=== PATIENT | female | born 1950 | race Hispanic/Latino ===

== ENCOUNTER 2017-10-14 06:27 | Emergency (ER) | payer BC, MEDICARE ==
[2017-10-14 06:36] VITALS: BMI 21.9
[2017-10-14 06:37] VITALS: O2SAT 96
[2017-10-14] MEDS ORDERED: Albuterol-Ipratrop 3 mg / 0.5 (3 ml) UD ONE (06:39)
[2017-10-14] MEDS: Albuterol-Ipratrop 3 mg / 0.5 (3 ml) UD IH SCH ×3 (07:16→08:03)
--- NOTE | 2017-10-14 07:23 | ED PDOC ---
Arrival/HPI - General Chief Complaint: Shortness Of Breath Time Seen by Provider: 10/14/17 07:07 Historian: Patient - History of Present Illness Narrative History of Present Illness (Text): 10/14/17 07:06 A 67 year old female smoker, whose past medical history includes asthma, bronchitis, and COPD, presents to the emergency department for right sided lower rib pain when coughing and she has associated sputum, which began yesterday. The patient reports since yesterday her coughing has increased and she feels short of breath. Her rib pain worsens with cough. The patient denies any fever, palpitations, abdominal pain, or any other complaints at this time. Time/Duration: 24 hours Symptom Onset: Sudden Symptom Course: Unchanged Activities at Onset: Light Context: Home Past Medical History - Provider Review Nursing Documentation Reviewed: Yes - Infectious Disease Hx of Infectious Diseases: None - Tetanus Immunization Tetanus Immunization: Unknown - Cardiac Hx Cardiac Disorders: Yes Hx Atrial Fibrillation: Yes Hx Hypertension: Yes - Pulmonary Hx Respiratory Disorders: Yes Hx Asthma: Yes Hx Bronchitis: Yes Hx Pneumonia: Yes (3 years ago) Hx Sleep Apnea: Yes (c pap) - Renal Hx Renal Disorder: Yes Hx Kidney Stones: Yes (right nephrectomy due to many large stones) - Endocrine/Metabolic Hx Endocrine Disorders: Yes Hx Diabetes Mellitus Type 2: Yes - Musculoskeletal/Rheumatological Hx Falls: No - Gastrointestinal Hx Gastrointestinal Disorders: Yes Hx Gall Bladder Disease: Yes Hx Gastroesophageal Reflux: Yes - Psychiatric Hx Psychophysiologic Disorder: Yes Hx Anxiety: Yes Hx Depression: Yes Hx Substance Use: No - Surgical History Hx Orthopedic Surgery: Yes (bilat bunionectomy) Other/Comment: right nephrectomy - Anesthesia Hx Anesthesia: Yes Hx Anesthesia Reactions: No Hx Malignant Hyperthermia: No - Suicidal Assessment Feels Threatened In Home Enviroment: No Family/Social History - Physician Review Nursing Documentation Reviewed: Yes Family/Social History: No Known Family HX Smoking Status: Former Smoker Hx Alcohol Use: No Hx Substance Use: No Hx Substance Use Treatment: No Allergies/Home Meds Allergies/Adverse Reactions: Allergies No Known Allergies Allergy (Verified 10/14/17 06:36) Home Medications: Home Meds Medication Instructions Recorded Confirmed Hyzaar 25 mg-100 mg 1 tab PO DAILY 03/03/14 10/14/17 Tricor 145 mg PO DAILY 03/03/14 10/14/17 Albuterol HFA [Ventolin HFA 90 1 puff NEB TID 05/04/14 10/14/17 mcg/actuation (8 g)] Alprazolam [Xanax] 0.25 mg PO BID PRN 05/04/14 10/14/17 Fluvastatin Sodium [Lescol] 80 mg PO DAILY 05/04/14 10/14/17 Fluticasone/Vilanterol [Breo 1 inh INH DAILY 06/26/16 10/14/17 Ellipta 100-25 Mcg INH] Liraglutide [Victoza 2-Jose] 0.8 mg SC DAILY 06/26/16 10/14/17 Tiotropium Zap Inhaler 1 inh INH DAILY 06/26/16 10/14/17 [Spiriva Inhalation Handihaler Device] predniSONE [predniSONE Tab] 40 mg PO DAILY 11/14/16 10/14/17 Apixaban [Eliquis] 5 mg PO BID 11/28/16 10/14/17 Carvedilol [Coreg] 6.25 mg PO DAILY 11/28/16 10/14/17 Escitalopram [Lexapro] 20 mg PO DAILY 11/28/16 10/14/17 Esomeprazole Magnesium [Nexium] 1 cap PO DAILY 11/28/16 10/14/17 Review of Systems - Review of Systems Constitutional: absent: Fevers Eyes: absent: Vision Changes Respiratory: SOB, Cough, Sputum Cardiovascular: MORA, Other (left sided chest pain when coughing only). absent: Palpitations Gastrointestinal: absent: Abdominal Pain Musculoskeletal: Other (right side lower rib pain ) Skin: absent: Rash Neurological: absent: Headache, Dizziness Hemo/Lymphatic: absent: Easy Bleeding Physical Exam - Physical Exam Narrative Physical Exam (Text): 10/14/17 07:23 Head: Atraumatic. Normocephalic. Eyes: PERRL. EOMI. Conjunctivae are not pale. ENT: Mucous membranes are moist and intact. Oropharynx is clear and symmetric. Neck: Supple. Full ROM. No JVD. No lymphadenopathy. Cardiovascular: Regular rate. Regular rhythm. Systolic murmur. Distal pulses are 2+ and symmetric. Pulmonary/Chest: Diffuse expiratory wheeze bilaterally. No rales or rhonchi. No accessory muscle usage. Palpable left anterior chest wall pain. Abdominal: Soft and non-distended. There is no tenderness. No rebound, guarding, or rigidity. No organomegaly. Good bowel sounds. Back: No CVA tenderness. Extremities: No edema. No cyanosis. No clubbing. Full range of motion in all extremities. No calf tenderness. Skin: Skin is warm and dry. No petechiae. No purpura. Neurological: Alert, awake, and oriented. Motor and sensory exam intact. Psychiatric: Good eye contact. Normal interaction, affect, and behavior. Vital Signs Reviewed: Yes Vital Signs Temp Pulse Resp BP Pulse Ox 10/14/17 08:28 98.2 F 81 19 133/77 96 10/14/17 06:50 96 10/14/17 06:36 97.9 F 88 20 150/82 96 Temperature: Afebrile Blood Pressure: Normal Pulse: Regular Respiratory Rate: Normal Appearance: Positive for: Well-Appearing, Non-Toxic, Comfortable Pain Distress: None Mental Status: Positive for: Alert and Oriented X 3 Medical Decision Making ED Course and Treatment: 10/14/17 07:15 Impression: A 67 year old female with shortness of breath and productive cough. Differential Diagnosis included but are not limited to: Asthma exacerbation vs. Pneumonia vs. CAD Plan: -- VBG -- EKG -- Chest X-ray -- Duoneb, Solu-medrol -- Labs -- Reassess and disposition Progress Notes: Patient is a 67 yo female, smoker, with diffuse wheezing noted. Duonebs and iv steroids ordered, on re-assessment, wheezing improved but persistent. 10/14/17 08:34 Chest X-ray Arcade Game Technician : Lawrence Thomas MD Report Date : 10/14/2017 08:19:02 HISTORY:cough, asthma COMPARISON:06/26/2016 FINDINGS: LUNGS:No active pulmonary disease. PLEURA:No significant pleural effusion identified, no pneumothorax apparent. CARDIOVASCULAR:Normal. OSSEOUS STRUCTURES:No significant abnormalities. VISUALIZED UPPER ABDOMEN:Normal. OTHER FINDINGS:None. IMPRESSION: No active disease. Chest pain is palpable, although patient noted to have elevated BNP. No jvd or leg edema noted. I did review patient's history of smoking and advised her of risks of this. I reviewed recent CT chest with patient as well. Due to elevated BNP, persistent wheezing, I have advised, in laymens terms, admission to the hospital for further management. She states she has things to take care of home and wishes to sign out against medical advice. She is oxygenating well, not in respiratory distress on re-evaluation. Limitations of imaging studies, labs and EKG reviewed with patient. I reviewed case with her PMD Dr. Phelps, aware of patient signing out AMA and will follow-up. 10/14/17 08:37 Leaving Against Medical Advice (AMA): The patient is choosing to leave against medical advice. I have personally explained to the patient that choosing to do so may result in permanent bodily harm or . I have discussed at great length that without further evaluation and monitoring there may be unforeseen circumstances and/or deterioration causing permanent bodily harm or as a result of their choice. The patient is alert, oriented, and shows the mental capacity to make clear decisions regarding the patients health care at this time. The patient continues to wish to leave against medical advice. In light of the patients decision to leave against medical advice, follow-up has been arranged and the patient is aware of the importance to following up as instructed. The patient has been advised that they should return to the emergency room immediately if they change their mind at any time, or if their condition begins to change or worsen in any way.. 10/14/17 09:12 - Lab Interpretations Lab Results: 10/14/17 07:20 10/14/17 07:20 Lab Results 10/14/17 07:20: Sodium 140, Chloride 111 H, Potassium 4.0, Carbon Dioxide 24, Anion Gap 9 L, BUN 18, Creatinine 1.3 H, Est GFR ( Amer) 50, Est GFR (Non -Af Amer) 41, Random Glucose 101, Calcium 9.1, Total Bilirubin 0.5, AST 25, ALT 24, Alkaline Phosphatase 45, Lactate Dehydrogenase 493, Total Creatine Kinase 83 , Troponin I < 0.01, NT-Pro-B Natriuret Pep 1300 H, Total Protein 6.5, Albumin 3.3, Globulin 3.2, Albumin/Globulin Ratio 1.0 L 10/14/17 07:20: pO2 64 H, VBG pH 7.33, VBG pCO2 48.0, VBG HCO3 25.3, VBG Total CO2 26.8, VBG O2 Sat (Calc) 94.4 H, VBG Base Excess -1.1 L, VBG Potassium 4.0, Sodium 140.0, Chloride 112.0 H, Glucose 100, Lactate 0.9, FiO2 21.0, Venous Blood Potassium 4.0 10/14/17 07:20: PT 18.2 H, INR 1.64 H, APTT 38.1 H 10/14/17 07:20: WBC 10.6, RBC 3.73, Hgb 11.4 L, Hct 35.9 L, MCV 96.2, MCH 30.6, MCHC 31.8, RDW 15.9 H, Plt Count 296, MPV 11.6 H, Gran % 63.2, Lymph % (Auto) 21.6 L, [place] % (Auto) 9.6 H, Eos % (Auto) 5.2 H, Baso % (Auto) 0.4, Gran # 6.68 H, Lymph # 2.3, [place] # 1.0 H, Eos # 0.6, Baso # 0.04 - RAD Interpretation Radiology Orders: 10/14/17 07:10 CHEST PORTABLE [RAD] Stat - EKG Interpretation EKG Interpretation (Text): 10/14/17 09:12 EKG at 0735 normal sinus rhythm rate of 84 with low voltage qrs Interpreted by ED Physician: Yes Type: 12 lead EKG - Medication Orders Current Medication Orders: Discontinued Medications Acetaminophen (Tylenol 325mg Tab) 650 mg PO ONCE STA Stop: 10/14/17 08:11 Last Admin: 10/14/17 08:19 Dose: 650 mg MAR Pain/Vitals Document 10/14/17 08:19 [place] (Rec: 10/14/17 08:24 [facility] [id number] Pain Reassessment Is This A Pain ReAssessment? Yes Sleep Is patient sleeping during reassessment? No Presence of Pain Presence of Pain Yes Pain Scale Used Pain Scale Used Numeric Location Pain Location Body Cultured [employer] Maker Description Intermittent Intensity 7 Scale Used Numeric Albuterol/Ipratropium (Duoneb 3 Mg/0.5 Mg (3 Ml) Ud) 3 ml IH Q15M ALBERT Stop: 10/14/17 07:46 Last Admin: 10/14/17 08:03 Dose: 3 ml Methylprednisolone (Solu-Medrol) 125 mg IVP STAT STA Stop: 10/14/17 07:13 Last Admin: 10/14/17 08:03 Dose: 125 mg IVP Administration Document 10/14/17 08:03 LA (Rec: 10/14/17 08:03 [facility] [id number][place] Charges for Administration # of IVP Administrations 1 - Scribe Statement The provider has reviewed the documentation as recorded by the Scribe Emily Munson Provider Scribe Attestation: All medical record entries made by the Scribe were at my direction and personally dictated by me. I have reviewed the chart and agree that the record accurately reflects my personal performance of the history, physical exam, medical decision making, and the department course for this patient. I have also personally directed, reviewed, and agree with the discharge instructions and disposition. Disposition/Present on Arrival - Present on Arrival Any Indicators Present on Arrival: No History of DVT/PE: No History of Uncontrolled Diabetes: No Urinary Catheter: No History of Decub. Ulcer: No History Surgical Site Infection Following: None - Disposition Have Diagnosis and Disposition been Completed?: Yes Diagnosis: Asthma exacerbation, Elevated brain natriuretic peptide (BNP) level, Dyspnea Disposition: AGAINST MEDICAL ADVICE Disposition Time: 08:45 Patient Plan: Discharge Patient Problems: Current Active Problems Problem Status Onset Asthma exacerbation Acute Dyspnea Acute Elevated brain natriuretic peptide (BNP) level Acute Condition: GOOD Discharge Instructions (ExitCare): Asthma (ED), How to Stop Smoking (ED), Acute Bronchitis (ED) Additional Instructions: You have stated that you do not with to be admitted to the hospital. Please return to the ER immediately for any worsening of symptoms. Please refrain from smoking. Please follow-up with your primary care doctor as soon as possible. Take antibiotics and prednisone as directed. Continue your inhaler as directed. Follow-up with a diagnostic radiologist as discussed. Prescriptions: Amoxicillin/Clavulanate [Augmentin 875 MG-125 MG] 1 tab PO BID #20 tab predniSONE [Prednisone] 60 mg PO DAILY #15 tab Referrals: Stepan Silva MD [Primary Care Provider] - Follow up with primary Forms: [facility] [employer] (Chinese), WORK NOTE
[2017-10-14 07:44] LABS: VENOUS BLOOD GAS BASE EXCESS -1.1 mmol/L (0.0-2.0); VENOUS BLOOD PH 7.33 (7.32-7.43)
[2017-10-14 07:47] LABS: BASO # 0.04 K/mm3 (0.0-2.0); BASO % 0.4 % (0.0-3.0); EOS # 0.6 (0.0-0.7); EOS % 5.2 % (1.5-5.0); GRAN # 6.68 (1.4-6.5); GRAN % 63.2 % (50.0-68.0); HEMATOCRIT 35.9 % (36.0-48.0); LYMPH # 2.3 (1.2-3.4); LYMPH % 21.6 % (22.0-35.0); MEAN CELL VOLUME 96.2 fl (80.0-105.0); MEAN CORPUSCULAR HEMOGLOBIN 30.6 pg (25.0-35.0); MEAN CORPUSCULAR HGB CONC 31.8 g/dl (31.0-37.0); MEAN PLATELET VOLUME 11.6 fl (7.0-11.0); MONO % 9.6 % (1.0-6.0); RED CELL DISTRIBUTION WIDTH 15.9 % (11.5-14.5); WHITE BLOOD COUNT 10.6 10^3/ul (4.5-11.0)
[2017-10-14 07:55] LABS: ALKALINE PHOSPHATASE 45 U/L (38-126); ALT/SGPT 24 U/L (7-56); AST/SGOT 25 U/L (14-36); BILIRUBIN,TOTAL 0.5 mg/dL (0.2-1.3); BLOOD UREA NITROGEN 18 mg/dL (7-21); CALCIUM 9.1 mg/dL (8.4-10.5); CARBON DIOXIDE 24 mmol/L (21-33); CHLORIDE 111 mmol/L (98-107); GFR AFRICAN-AMERICAN 50; GLUCOSE,RANDOM 101 mg/dL (70-110); SODIUM 140 mmol/L (132-148); TOTAL PROTEIN 6.5 g/dL (5.8-8.3)
[2017-10-14 08:03] LABS: INR 1.64 (0.93-1.08); PARTIAL THROMBOPLASTIN TIME 38.1 Seconds (25.1-36.5)
[2017-10-14 08:07] LABS: TROPONIN I < 0.01 ng/mL
--- NOTE | 2017-10-14 08:20 | RAD ---
HISTORY: cough, asthma COMPARISON: 06/26/2016 FINDINGS: LUNGS: No active pulmonary disease. PLEURA: No significant pleural effusion identified, no pneumothorax apparent. CARDIOVASCULAR: Normal. OSSEOUS STRUCTURES: No significant abnormalities. VISUALIZED UPPER ABDOMEN: Normal. OTHER FINDINGS: None. IMPRESSION: No active disease.
[2017-10-14 08:30] VITALS: BP 133/77; PULSE 81; RESP 19; TEMP 98.2
--- NOTE | 2017-10-14 12:06 | CARD ---
APPROVED REPORT EKG Measurement Heart [id number] <Conclusion> Normal sinus rhythm LAD NSSTW changes No change
== END 2017-10-14 09:05 | disposition left against medical advice (07) ==
LOC: ED 06:27
DX: J45.901 Unspecified asthma with (acute) exacerbation (principal); R79.89 Other specified abnormal findings of blood chemistry; I10 Essential (primary) hypertension; I48.91 Unspecified atrial fibrillation; E11.9 Type 2 diabetes mellitus without complications; Z87.891 Personal history of nicotine dependence
CPT/HCPCS: 71010; 80053; 82550; 82803; 83615; 83880; 84484; 85025; 85610; 85730; 87040; 93005; 96374; 99285; J2930

== ENCOUNTER 2017-10-15 23:39 | Observation (INO) | payer BC ==
[2017-10-15 23:40] VITALS: BMI 21.9
--- NOTE | 2017-10-15 23:59 | ED PDOC ---
Arrival/HPI - General Chief Complaint: Abdominal Pain Time Seen by Provider: 10/15/17 23:45 Historian: Patient - History of Present Illness Narrative History of Present Illness (Text): 10/15/17 23:56 Marissa Marmolejo is a 67 year old female, whose past medical history includes right nephrectomy s/p multiple episodes of nephrolithiasis, cholecystectomy, atrial fibrillation, asthma, hypertension, and diabetes, who presents to the Emergency department complaining of LUQ abdominal pain for the past few days. Patient also reports some associated nausea but denies any fever, chills, chest pain, shortness of breath, vomiting, diarrhea, urinary symptoms, back pain, neck pain, headache, dizziness, or any other complaints. PMD: Dr. Silva Time/Duration: Other (few days) Symptom Onset: Gradual Symptom Course: Unchanged Activities at Onset: Light Context: Home Past Medical History - Provider Review Nursing Documentation Reviewed: Yes - Infectious Disease Hx of Infectious Diseases: None - Tetanus Immunization Tetanus Immunization: Unknown - Cardiac Hx Cardiac Disorders: Yes Hx Atrial Fibrillation: Yes Hx Hypertension: Yes - Pulmonary Hx Respiratory Disorders: Yes Hx Asthma: Yes Hx Bronchitis: Yes Hx Pneumonia: Yes (3 years ago) Hx Sleep Apnea: Yes (c pap) - Renal Hx Renal Disorder: Yes Hx Kidney Stones: Yes (right nephrectomy due to many large stones) - Endocrine/Metabolic Hx Endocrine Disorders: Yes Hx Diabetes Mellitus Type 2: Yes - Musculoskeletal/Rheumatological Hx Falls: No - Gastrointestinal Hx Gastrointestinal Disorders: Yes Hx Gall Bladder Disease: Yes Hx Gastroesophageal Reflux: Yes - Psychiatric Hx Psychophysiologic Disorder: Yes Hx Anxiety: Yes Hx Depression: Yes Hx Substance Use: No - Surgical History Hx Orthopedic Surgery: Yes (bilat bunionectomy) Other/Comment: right nephrectomy - Anesthesia Hx Anesthesia: Yes Hx Anesthesia Reactions: No Hx Malignant Hyperthermia: No - Suicidal Assessment Feels Threatened In Home Enviroment: No Family/Social History - Physician Review Nursing Documentation Reviewed: Yes Family/Social History: Unknown Family HX Smoking Status: y Hx Alcohol Use: No Hx Substance Use: No Hx Substance Use Treatment: No Allergies/Home Meds Allergies/Adverse Reactions: Allergies No Known Allergies Allergy (Verified 10/14/17 06:36) Home Medications: Home Meds Medication Instructions Recorded Confirmed Hyzaar 25 mg-100 mg 1 tab PO DAILY 03/03/14 10/14/17 Tricor 145 mg PO DAILY 03/03/14 10/14/17 Albuterol HFA [Ventolin HFA 90 1 puff NEB TID 05/04/14 10/14/17 mcg/actuation (8 g)] Alprazolam [Xanax] 0.25 mg PO BID PRN 05/04/14 10/14/17 Fluvastatin Sodium [Lescol] 80 mg PO DAILY 05/04/14 10/14/17 Fluticasone/Vilanterol [Breo 1 inh INH DAILY 06/26/16 10/14/17 Ellipta 100-25 Mcg INH] Liraglutide [Victoza 2-Jose] 0.8 mg SC DAILY 06/26/16 10/14/17 Tiotropium Austin Inhaler 1 inh INH DAILY 06/26/16 10/14/17 [Spiriva Inhalation Handihaler Device] predniSONE [predniSONE Tab] 40 mg PO DAILY 11/14/16 10/14/17 Apixaban [Eliquis] 5 mg PO BID 11/28/16 10/14/17 Carvedilol [Coreg] 6.25 mg PO DAILY 11/28/16 10/14/17 Escitalopram [Lexapro] 20 mg PO DAILY 11/28/16 10/14/17 Esomeprazole Magnesium [Nexium] 1 cap PO DAILY 11/28/16 10/14/17 Review of Systems - Physician Review All systems were reviewed & negative as marked: Yes - Review of Systems Constitutional: Normal. absent: Fevers Eyes: Normal ENT: Normal Respiratory: Normal. absent: SOB, Cough Cardiovascular: Normal. absent: Chest Pain Gastrointestinal: Abdominal Pain, Nausea. absent: Diarrhea, Vomiting Genitourinary Female: Normal. absent: Dysuria, Frequency, Hematuria, Urine Output Changes Musculoskeletal: Normal. absent: Back Pain, Neck Pain Skin: Normal. absent: Rash Neurological: Normal. absent: Headache, Dizziness Endocrine: Normal Hemo/Lymphatic: Normal Psychiatric: Normal Physical Exam Vital Signs Reviewed: Yes Vital Signs Temp Pulse Resp BP Pulse Ox 10/16/17 04:12 98.0 F 82 17 122/74 96 10/16/17 04:01 99.2 F 100 H 20 132/83 10/16/17 03:28 82 17 122/74 96 10/16/17 00:44 98.3 F 93 H 17 156/83 H 96 10/15/17 23:40 98.3 F Temperature: Afebrile Blood Pressure: Normal Pulse: Regular Respiratory Rate: Normal Appearance: Positive for: Well-Appearing, Non-Toxic, Comfortable Pain Distress: None Mental Status: Positive for: Alert and Oriented X 3 - Systems Exam Head: Present: Atraumatic, Normocephalic Pupils: Present: PERRL Extroacular Muscles: Present: EOMI Conjunctiva: Present: Normal Mouth: Present: Moist Mucous Membranes Neck: Present: Normal Range of Motion Respiratory/Chest: Present: Clear to Auscultation, Good Air Exchange. No: Respiratory Distress, Accessory Muscle Use Cardiovascular: Present: Regular Rate and Rhythm, Normal S1, S2. No: Murmurs Abdomen: Present: Normal Bowel Sounds. No: Tenderness, Distention, Peritoneal Signs Back: Present: Normal Inspection Upper Extremity: Present: Normal Inspection. No: Cyanosis, Edema Lower Extremity: Present: Normal Inspection. No: Edema Neurological: Present: GCS=15, CN II-XII Intact, Speech Normal Skin: Present: Warm, Dry, Normal Color. No: Rashes Psychiatric: Present: Alert, Oriented x 3, Normal Insight, Normal Concentration Medical Decision Making ED Course and Treatment: 10/15/17 23:56 Impression: 67 year old female complaining of LUQ pain with nausea for past few days, Plan: -- EKG -- Labs, cardiac enzymes, lipase, amylase -- Urinalysis, urine cultures -- IV fluids -- Zofran -- Dilaudid -- Reassess and disposition Prior Visits: Notes and results from previous visits were reviewed. On 10/14/2017, pt was seen in the Emergency department for right-sided lower rib pain when coughing with associated sputum. Pt was d/c home. Progress Notes: Reviewed EKG, NSR at 99 bpm. Occasional PAC. Non-specific ST/T wave changes. 10/16/17 02:05 CT Abdomen and Pelvis shows: Lower thorax: There is a somewhat ill-defined ovoid lesion in the left lower lobe measuring 2.7 x 2.6 CM on series 2, image 1. This may represent infiltrate, rounded atelectasis or perhaps ill-defined mass. Please correlate clinically and follow up can be obtained as clinically indicated. Vague groundglass opacity in the lingula is nonspecific and may represent atelectasis , early infiltrate or mosaic attenuation. Mosaic attenuation itself is nonspecific and can be seen in vascular and small airways disease. ABDOMEN: Liver: There are no focal liver lesions present. Gallbladder and bile ducts: There has been a cholecystectomy. No ductal dilation. Pancreas: Pancreas is somewhat atrophic. No ductal dilation. Spleen: The spleen is normal. Adrenals: The adrenal glands are normal. Kidneys and ureters: Left kidney demonstrates a large exophytic lower pole cyst measuring 8.7 CM on series 2, image 97. Left kidney demonstrates a few smaller cysts and subcentimeter hypodensities which are too small to adequately characterize. No left hydronephrosis. The right kidney is surgically absent. Stomach and bowel: Stomach is predominantly decompressed and grossly unremarkable. Moderate diverticulosis is present in the sigmoid and descending colon. There is no evidence of diverticulitis. There is no evidence of intestinal obstruction. Appendix: A normal appendix is identified. PELVIS: Bladder: Bladder is decompressed. No stones. Reproductive: Uterus demonstrates a few chunky calcifications compatible with calcified fibroids. ABDOMEN and PELVIS: Intraperitoneal space: There is no evidence of free intraperitoneal fluid. There is no free intraperitoneal air. Bones/joints: There are moderate degenerative changes present. There is mild diffuse osteopenia. No acute fracture. No dislocation. Soft tissues: Hernia mesh is present along the right flank abdominal wall. Vasculature: The aorta demonstrates moderate atherosclerotic calcification. No abdominal aortic aneurysm. Lymph nodes: There is no evidence of lymphadenopathy. IMPRESSION: 1. There is a somewhat ill-defined ovoid lesion in the left lower lobe measuring 2.7 x 2.6 CM on series 2, image 1. This may represent infiltrate, rounded atelectasis or perhaps ill-defined mass. Please correlate clinically and follow up can be obtained as clinically indicated. 2. Vague groundglass opacity in the lingula is nonspecific and may represent atelectasis, early infiltrate or mosaic attenuation. Mosaic attenuation itself is nonspecific and can be seen in vascular and small airways disease. 3. No definite etiology for left flank pain is found. 4. Additional incidental and/or chronic findings as described. 10/16/17 02:[address] Phelps, covering for Dr. Silva, who is aware and agrees with plan. Pt will go to [facility] observation for abdominal pain and leukocytosis. - Lab Interpretations Microbiology Results: Microbiology Results 10/16/17 00:30 Urine,Clean Catch Urine Culture - Final No Growth (<1,000 CFU/ML) Lab Results: 10/16/17 00:13 10/16/17 00:13 Lab Results 10/16/17 00:30: Urine Color Yellow, Urine Appearance Clear, Urine pH 6.0, Ur Specific Nicasio 1.025, Urine Protein 100 H, Urine Glucose (UA) Negative, Urine Ketones Negative, Urine Blood Small H, Urine Nitrate Negative, Urine Bilirubin Negative, Urine Urobilinogen 0.2, Ur Leukocyte Esterase Negative, Urine RBC 1 - 3, Urine WBC 0 - 2, Ur Epithelial Cells 1 - 3, Urine Bacteria Few 10/16/17 00:13: Sodium 142, Potassium 4.5, Chloride 109 H, Carbon Dioxide 26, Anion Gap 11, BUN 22 H, Creatinine 1.4 H, Est GFR ( Amer) 46, Est GFR ( Non-Af Amer) 38, Random Glucose 99, Calcium 9.5, Total Bilirubin 0.8, AST 38 H D , ALT 25, Alkaline Phosphatase 38, Lactate Dehydrogenase 781 H, Total Creatine Kinase 90, Troponin I < 0.01, Total Protein 7.2, Albumin 3.6, Globulin 3.6, Albumin/Globulin Ratio 1.0 L, Amylase 61, Lipase 84 10/16/17 00:13: PT 12.9 H, INR 1.18 H, APTT 32.3 10/16/17 00:13: WBC 17.4 H D, RBC 3.97, Hgb 12.4, Hct 37.9, MCV 95.5, MCH 31.2, MCHC 32.7, RDW 15.4 H, Plt Count 348, MPV 11.5 H, Gran % 79.6 H, Lymph % (Auto) 14.9 L, Cuming % (Auto) 5.0, Eos % (Auto) 0.3 L, Baso % (Auto) 0.2, Gran # 13.88 H , Lymph # 2.6, Cuming # 0.9 H, Eos # 0.1, Baso # 0.03 I have reviewed the lab results: Yes - RAD Interpretation Radiology Orders: 10/16/17 00:43 ABD & PELVIS W/O PO OR IV CONT [CT] Stat 10/16/17 02:16 CHEST PORTABLE [RAD] Stat Sack Sorter: Radiologist - EKG Interpretation Interpreted by ED Physician: Yes Type: 12 lead EKG - Medication Orders Current Medication Orders: Discontinued Medications Acetylcysteine (Acetylcysteine 20%) 4 ml IH [id number] [facility] Last Admin: 10/17/17 08:33 Dose: 4 ml Alprazolam (Xanax) 0.25 mg PO BID PRN; Protocol PRN Reason: Anxiety Stop: 10/23/17 03:56 Apixaban (Eliquis) 5 mg PO BID [facility] PRN Reason: Protocol Last Admin: 10/17/17 10:27 Dose: 5 mg Atorvastatin Calcium (Lipitor) 20 mg PO DIN [facility] Last Admin: 10/16/17 17:40 Dose: 20 mg Budesonide (Pulmicort Respules) 0.5 mg IH [id number] [facility] Last Admin: 10/17/17 08:33 Dose: 0.5 mg Carvedilol (Coreg) 6.25 mg PO DAILY [facility] Last Admin: 10/17/17 10:27 Dose: 6.25 mg MAR Pulse and Blood Pressure Document 10/17/17 10:27 [facility] (Rec: 10/17/17 10:27 [id number] Pulse Pulse Rate (60-90) 68 Blood Pressure Blood Pressure (100/60-150/90) 120/69 Escitalopram Oxalate (Lexapro) 20 mg PO DAILY [facility] Last Admin: 10/17/17 10:26 Dose: 20 mg Fenofibrate (Tricor) 145 mg PO DAILY [facility] Last Admin: 10/17/17 10:27 Dose: 145 mg Hydrochlorothiazide (Hydrodiuril) 25 mg PO DAILY [facility] Last Admin: 10/17/17 10:26 Dose: 25 mg Hydromorphone HCl (Dilaudid) 2 mg IVP STAT STA Stop: 10/16/17 00:01 Last Admin: 10/16/17 00:24 Dose: 2 mg MAR Pain Assessment Document 10/16/17 00:24 IT (Rec: 10/16/17 00:24 IT [id number]) Pain Reassessment Is this a pain reassessment? No Sleep Is patient sleeping during reassessment? No Presence of Pain Presence of Pain Yes Pain Scale Used Pain Scale Used Numeric Location Left, Right or Bilateral Left Pain Location Body Site Abdomen IVP Administration Document 10/16/17 00:24 IT (Rec: 10/16/17 00:24 IT [id number]) Charges for Administration # of IVP Administrations 1 Re-Assess: ELADIO Pain Assessment Document 10/16/17 01:24 RR (Rec: 10/17/17 01:04 RR [id number]) Pain Reassessment Is this a pain reassessment? Yes Sleep Is patient sleeping during reassessment? Yes Pain Scale Used Pain Scale Used FLACC Sodium Chloride (Sodium Chloride 0.9%) 1,000 mls @ 80 mls/hr IV .[id number] [facility] Last Admin: 10/17/17 05:29 Dose: 80 mls/hr eMAR Start Stop Document 10/17/17 05:29 RR (Rec: 10/17/17 05:29 RR [id number]) Intravenous Solution Start Date 10/17/17 Start Time 05:29 Metronidazole (Flagyl) 500 mg in 100 mls @ 100 mls/hr IVPB STAT STA PRN Reason: Protocol Stop: 10/16/17 03:23 Last Admin: 10/16/17 02:38 Dose: 100 mls/hr eMAR Start Stop Document 10/16/17 02:38 IT (Rec: 10/16/17 02:38 IT [id number]) Intravenous Solution Start Date 10/16/17 Start Time 02:38 End Date 10/16/17 End time 03:38 Total Infusion Time 60 Ceftriaxone Sodium 1 gm/ (Sodium Chloride) 100 mls @ 100 mls/hr IVPB STAT STA Stop: 10/16/17 03:29 Last Admin: 10/16/17 04:21 Dose: 100 mls/hr eMAR Start Stop Document 10/16/17 04:21 DC (Rec: 10/16/17 05:04 DC [id number]) Intravenous Solution Start Date 10/16/17 Start Time 04:21 End Date 10/16/17 End time 05:21 Total Infusion Time 60 Metronidazole (Flagyl) 500 mg in 100 mls @ 100 mls/hr IVPB Q8H [facility] PRN Reason: Protocol Last Admin: 10/17/17 05:34 Dose: Doxycycline Hyclate 100 mg/ (Sodium Chloride) 100 mls @ 100 mls/hr IVPB Q12 [facility] PRN Reason: Protocol Last Admin: 10/16/17 21:26 Dose: 100 mls/hr eMAR Start Stop Document 10/16/17 21:26 RR (Rec: 10/16/17 21:27 RR [id number]) Intravenous Solution Start Date 10/16/17 Start Time 22:50 End Date 10/16/17 End time 23:50 Total Infusion Time 60 Ceftriaxone Sodium (Rocephin 1 Gram Ivpb (D5w)) 1 gm in 100 mls @ 100 mls/hr IVPB DAILY [facility] PRN Reason: Protocol Last Admin: 10/17/17 10:29 Dose: 100 mls/hr eMAR Start Stop Document 10/17/17 10:29 [facility] (Rec: 10/17/17 10:29 [facility] [id number]) Intravenous Solution Start Date 10/17/17 Start Time 10:29 End Date 10/17/17 End time 11:30 Total Infusion Time 61 Metronidazole (Flagyl) 500 mg in 100 mls @ 100 mls/hr IVPB Q8H [facility] PRN Reason: Protocol Last Admin: 10/17/17 05:28 Dose: 100 mls/hr eMAR Start Stop Document 10/17/17 05:28 RR (Rec: 10/17/17 05:28 RR [id number]) Intravenous Solution Start Date 10/17/17 Start Time 05:28 End Date 10/17/17 End time 06:28 Total Infusion Time 60 Ceftriaxone Sodium 1 gm/ (Sodium Chloride) 100 mls @ 100 mls/hr IVPB DAILY [facility] PRN Reason: Protocol Insulin Human Regular (Humulin R Low) 0 units SC ACHS [facility] PRN Reason: Protocol Last Admin: 10/17/17 07:52 Dose: Not Given Non-Admin Reason: Blood Sugar Parameter MAR Blood Glucose Document 10/17/17 07:52 [facility] (Rec: 10/17/17 07:52 [id number]) Blood Glucose Finger Stick Blood Glucose (70-120) 133 Lactobacillus Acidophilus (Bacid Acidophilus) 1 cap PO BID [facility] Levalbuterol HCl (Xopenex) 0.63 mg IH [id number] PRN PRN Reason: Shortness of Breath Last Admin: 10/16/17 08:40 Dose: 0.63 mg Levalbuterol HCl (Xopenex) 0.63 mg IH [id number] [facility] Last Admin: 10/17/17 11:09 Dose: 0.63 mg Losartan Potassium (Cozaar) 100 mg PO DAILY [facility] Last Admin: 10/17/17 10:26 Dose: 100 mg Methylprednisolone (Solu-Medrol) 40 mg IVP Q8 [facility] Last Admin: 10/17/17 05:29 Dose: 40 mg IVP Administration Document 10/17/17 05:29 RR (Rec: 10/17/17 05:29 RR [id number]) Charges for Administration # of IVP Administrations 1 Methylprednisolone (Solu-Medrol) 40 mg IVP Q12 [facility] Last Admin: 10/17/17 10:29 Dose: 40 mg IVP Administration Document 10/17/17 10:29 [facility] (Rec: 10/17/17 10:29 [facility] [id number]) Charges for Administration # of IVP Administrations 1 Metronidazole (Flagyl) 250 mg PO Q8H [facility] PRN Reason: Protocol Stop: 10/27/17 11:46 Morphine Sulfate (Morphine) 2 mg IVP Q4H PRN PRN Reason: Pain, severe (8-10) Last Admin: 10/16/17 22:23 Dose: 2 mg MAR Pain Assessment Document 10/16/17 22:23 RR (Rec: 10/16/17 22:24 RR [id number]) Pain Reassessment Is this a pain reassessment? No Sleep Is patient sleeping during reassessment? No Presence of Pain Presence of Pain Yes Pain Scale Used Pain Scale Used Numeric Location Left, Right or Bilateral Left Upper or Lower Lower Pain Location Body Site Abdomen Description Description Intermittent Intensity of Pain at present 6 Pain Behavior Moaning Guarding Facial Grimacing Alleviating Factors/Management Medication Techniques Alleviating Factors Medication IVP Administration Document 10/16/17 22:23 RR (Rec: 10/16/17 22:24 RR [id number]) Charges for Administration # of IVP Administrations 1 Re-Assess: MAR Pain Assessment Document 10/16/17 23:23 RR (Rec: 10/17/17 01:04 RR [id number]) Pain Reassessment Is this a pain reassessment? Yes Sleep Is patient sleeping during reassessment? Yes Pain Scale Used Pain Scale Used FLACC Ondansetron HCl (Zofran Inj) 4 mg IVP STAT STA Stop: 10/16/17 00:01 Last Admin: 10/16/17 00:24 Dose: 4 mg IVP Administration Document 10/16/17 00:24 IT (Rec: 10/16/17 00:24 IT [id number]) Charges for Administration # of IVP Administrations 1 Pantoprazole Sodium (Protonix Ec Tab) 40 mg PO 0600 [facility] Last Admin: 10/17/17 05:28 Dose: 40 mg Tiotropium Austin (Spiriva) 18 mcg INH DAILY [facility] Last Admin: 10/17/17 10:30 Dose: - Scribe Statement The provider has reviewed the documentation as recorded by the Guero Pang Provider Scribe Attestation: All medical record entries made by the Joanaibadithya were at my direction and personally dictated by me. I have reviewed the chart and agree that the record accurately reflects my personal performance of the history, physical exam, medical decision making, and the department course for this patient. I have also personally directed, reviewed, and agree with the discharge instructions and disposition. Disposition/Present on Arrival - Present on Arrival Any Indicators Present on Arrival: No History of DVT/PE: No History of Uncontrolled Diabetes: No Urinary Catheter: No History of Decub. Ulcer: No History Surgical Site Infection Following: None - Disposition Have Diagnosis and Disposition been Completed?: Yes Diagnosis: Abdominal pain Disposition: HOSPITALIZED Disposition Time: 03:00 Condition: GOOD
[2017-10-16] MEDS ORDERED: HYDROmorphone 2 mg/ml ISec IVP STA
[2017-10-16] MEDS: Sodium Chloride 0.9% 1,000 ML IV SCH ×2 (00:24→13:58)
[2017-10-16 00:29] LABS: BASO # 0.03 K/mm3 (0.0-2.0); BASO % 0.2 % (0.0-3.0); EOS # 0.1 (0.0-0.7); EOS % 0.3 % (1.5-5.0); GRAN # 13.88 (1.4-6.5); GRAN % 79.6 % (50.0-68.0); HEMATOCRIT 37.9 % (36.0-48.0); LYMPH # 2.6 (1.2-3.4); LYMPH % 14.9 % (22.0-35.0); MEAN CELL VOLUME 95.5 fl (80.0-105.0); MEAN CORPUSCULAR HEMOGLOBIN 31.2 pg (25.0-35.0); MEAN CORPUSCULAR HGB CONC 32.7 g/dl (31.0-37.0); MEAN PLATELET VOLUME 11.5 fl (7.0-11.0); MONO # 0.9 (0.1-0.6); RED CELL DISTRIBUTION WIDTH 15.4 % (11.5-14.5); WHITE BLOOD COUNT 17.4 10^3/ul (4.5-11.0)
[2017-10-16 00:40] LABS: ALKALINE PHOSPHATASE 38 U/L (38-126); ALT/SGPT 25 U/L (7-56); AMYLASE 61 U/L (35-125); AST/SGOT 38 U/L (14-36); BILIRUBIN,TOTAL 0.8 mg/dL (0.2-1.3); BLOOD UREA NITROGEN 22 mg/dL (7-21); CALCIUM 9.5 mg/dL (8.4-10.5); CARBON DIOXIDE 26 mmol/L (21-33); CHLORIDE 109 mmol/L (98-107); GFR AFRICAN-AMERICAN 46; GLUCOSE,RANDOM 99 mg/dL (70-110); INR 1.18 (0.93-1.08); LIPASE 84 U/L (23-300); PARTIAL THROMBOPLASTIN TIME 32.3 Seconds (25.1-36.5); POTASSIUM 4.5 mmol/L (3.6-5.0); SODIUM 142 mmol/L (132-148); TOTAL PROTEIN 7.2 g/dL (5.8-8.3)
[2017-10-16 00:47] LABS: URINE BILIRUBIN NEGATIVE (NEGATIVE); URINE BLOOD SMALL (NEGATIVE); URINE GLUCOSE (UA) NEGATIVE (NEGATIVE); URINE KETONE NEGATIVE (NEGATIVE); URINE LEUKOCYTE ESTERASE NEGATIVE Leu/uL (NEGATIVE); URINE PROTEIN 100 mg/dL (<30 mg/dL); URINE UROBILINOGEN 0.2 E.U./dL (<1 E.U./dL)
[2017-10-16 00:53] LABS: URINE APPEARANCE CLEAR (CLEAR); URINE COLOR YELLOW (YELLOW)
[2017-10-16 00:57] LABS: TROPONIN I < 0.01 ng/mL
[2017-10-16 01:09] LABS: URINE BACTERIA FEW (NEG); URINE WBC 0 - 2 /hpf (0-6)
--- NOTE | 2017-10-16 02:01 | CT ---
EXAM: CT Abdomen and Pelvis Without Intravenous Contrast CLINICAL HISTORY: 67 years old, female; Pain; Abdominal pain; Flank; Left; Prior surgery; Surgery date: 6+ months; Surgery type: Kidney removal: Gallbladder removal; Additional info: Abd pain TECHNIQUE: Axial computed tomography images of the abdomen and pelvis without intravenous contrast. All CT scans at this facility use one or more dose reduction techniques, viz.: automated exposure control; ma/kV adjustment per patient size (including targeted exams where dose is matched to indication; i.e. head); or iterative reconstruction technique. Coronal and sagittal reformatted images were created and reviewed. COMPARISON: No relevant prior studies available. FINDINGS: Lower thorax: There is a somewhat ill-defined ovoid lesion in the left lower lobe measuring 2.7 x 2.6 CM on series 2, image 1. This may represent infiltrate, rounded atelectasis or perhaps ill-defined mass. Please correlate clinically and follow up can be obtained as clinically indicated. Vague groundglass opacity in the lingula is nonspecific and may represent atelectasis, early infiltrate or mosaic attenuation. Mosaic attenuation itself is nonspecific and can be seen in vascular and small airways disease. ABDOMEN: Liver: There are no focal liver lesions present. Gallbladder and bile ducts: There has been a cholecystectomy. No ductal dilation. Pancreas: Pancreas is somewhat atrophic. No ductal dilation. Spleen: The spleen is normal. Adrenals: The adrenal glands are normal. Kidneys and ureters: Left kidney demonstrates a large exophytic lower pole cyst measuring 8.7 CM on series 2, image 97. Left kidney demonstrates a few smaller cysts and subcentimeter hypodensities which are too small to adequately characterize. No left hydronephrosis. The right kidney is surgically absent. Stomach and bowel: Stomach is predominantly decompressed and grossly unremarkable. Moderate diverticulosis is present in the sigmoid and descending colon. There is no evidence of diverticulitis. There is no evidence of intestinal obstruction. Appendix: A normal appendix is identified. PELVIS: Bladder: Bladder is decompressed. No stones. Reproductive: Uterus demonstrates a few chunky calcifications compatible with calcified fibroids. ABDOMEN and PELVIS: Intraperitoneal space: There is no evidence of free intraperitoneal fluid. There is no free intraperitoneal air. Bones/joints: There are moderate degenerative changes present. There is mild diffuse osteopenia. No acute fracture. No dislocation. Soft tissues: Hernia mesh is present along the right flank abdominal wall. Vasculature: The aorta demonstrates moderate atherosclerotic calcification. No abdominal aortic aneurysm. Lymph nodes: There is no evidence of lymphadenopathy. IMPRESSION: 1. There is a somewhat ill-defined ovoid lesion in the left lower lobe measuring 2.7 x 2.6 CM on series 2, image 1. This may represent infiltrate, rounded atelectasis or perhaps ill-defined mass. Please correlate clinically and follow up can be obtained as clinically indicated. 2. Vague groundglass opacity in the lingula is nonspecific and may represent atelectasis, early infiltrate or mosaic attenuation. Mosaic attenuation itself is nonspecific and can be seen in vascular and small airways disease. 3. No definite etiology for left flank pain is found. 4. Additional incidental and/or chronic findings as described.
[2017-10-16] MEDS ORDERED: metroNIDAZOLE IV 500 mg/100 ml 500 MG/100 ML BAG IVPB STA (02:24)
[2017-10-16] MEDS ORDERED: cefTRIAXone 1 gm 1 GM/100 ML BAG IVPB STA (02:27)
--- NOTE | 2017-10-16 03:54 | CP.PCM.HP ---
History of Present Illness - History of Present Illness History of Present Illness: 67 year old female with a past medical history significant for DM II, COPD, right nephrectomy secondary to complicated nephrolithiasis, sleep apnea, atrial fibrillation who presents with LUQ pain, associated nausea, and excess flatulence. The patient states the pain comes and go, radiates from the left subcostal region to the left groin. She cannot identify any worsening or alleviating factors. She does admits to more nausea than usual in the past week or so and an increase in urination. The pain is not associated with meals, urination, passing bowel movements, coughing, but is relieved with passing gas. Otherwise, the patient denies any fever, chills, chest pain, vomiting, hematochezia, hematuria, or pneumaturia. persistence of diarrhea. She did finish a course of antibiotics and did have some loose stools two or so days ago. Otherwise, she reports some excess flatulence and states the pain is somewhat relieves with passing flatus. Present on Admission - Present on Admission Any Indicators Present on Admission: No Review of Systems - Constitutional Constitutional: absent: Chills, Fever, Night Sweats - EENT Eyes: absent: Decreased Night Vision, Floaters, Pain Nose/Mouth/Throat: absent: Nasal Congestion, Nose Pain, Change in Voice - Cardiovascular Cardiovascular: absent: Chest Pain, Diaphoresis, Leg Ulcers - Respiratory Respiratory: absent: Dyspnea, Dyspnea on Exertion, Pain on Inspiration - Gastrointestinal Gastrointestinal: Abdominal Pain Past Patient History - Infectious Disease Hx of Infectious Diseases: None - Tetanus Immunizations Tetanus Immunization: Unknown - Past Medical History & Family History Past Medical History?: Yes - Past Social History Smoking Status: y - CARDIAC Hx Cardiac Disorders: Yes Hx Atrial Fibrillation: Yes Hx Hypertension: Yes - PULMONARY Hx Respiratory Disorders: Yes Hx Asthma: Yes Hx Bronchitis: Yes Hx Pneumonia: Yes (3 years ago) Hx Sleep Apnea: Yes (c pap) - RENAL Hx Chronic Kidney Disease: Yes Hx Kidney Stones: Yes (right nephrectomy due to many large stones) - ENDOCRINE/METABOLIC Hx Endocrine Disorders: Yes Hx Diabetes Mellitus Type 2: Yes - MUSCULOSKELETAL/RHEUMATOLOGICAL Hx Falls: No - GASTROINTESTINAL Hx Gastrointestinal Disorders: Yes Hx Gall Bladder Disease: Yes Hx Gastroesophageal Reflux: Yes - PSYCHIATRIC Hx Psychophysiologic Disorder: Yes Hx Anxiety: Yes Hx Depression: Yes Hx Substance Use: No - SURGICAL HISTORY Hx Orthopedic Surgery: Yes (bilat bunionectomy) Other/Comment: right nephrectomy - ANESTHESIA Hx Anesthesia: Yes Hx Anesthesia Reactions: No Hx Malignant Hyperthermia: No Meds Allergies/Adverse Reactions: Allergies Allergy/AdvReac Type Severity Reaction Status Date / Time No Known Allergies Allergy Verified 10/14/17 06:36 Results - Vital Signs Recent Vital Signs: Last Vital Signs Temp 98.3 F 10/16/17 00:44 Pulse 82 10/16/17 03:28 Resp 17 10/16/17 03:28 BP 122/74 10/16/17 03:28 Pulse Ox 96 10/16/17 03:28 - Labs Result Diagrams: 10/16/17 00:13 10/16/17 00:13 Assessment & Plan - Assessment and Plan (Free Text) Assessment: 67 year old female with a past medical history of atrial fibrillation, hypertension, s/p right nephrectomy, who presents with LUQ pain and associated nausea. Plan: 1) Left upper quadrant pain secondary to CAP with referred pain versus abdominal process - CT A/P reads as there is a somewhat ill-defined ovoid lesion in the left lower lobe measuring 2.7 x 2.6 CM on series 2, image 1. This may represent infiltrate, rounded atelectasis or perhaps ill-defined mass. Please correlate clinically and follow up can be obtained as clinically indicated. Vague groundglass opacity in the lingula is nonspecific and may represent atelectasis, earlyinfiltrate or mosaic attenuation. Mosaic attenuation itself is nonspecific and can be seen in vascular and small airways disease. No definite etiology for left flank pain is found. - CXR, read pending - Ceftriaxone 1 gram q24h - Doxycycline 500 mg IVP q12h - Duonebs q4h ALBERT - Metronidazole 500 mg q8h IVP (clinically, this may very well be diverticular) - Analgesia with Morphine 2 mg q4h (consider adding bowel regiment) - Zofran 4 mg q4h - GI consult, Dr. Millan - [facility] shock panel to assess lactate level ordered to rule out mesenteric ischemic given the extensive aortic calcifications seen on CT. 2) Atrial fibrillation and hypertension - Carvedilol 6.25 mg PO - Eliquis 5 mg BID - Losartan 100 mg - HCTZ 25 mg PO daily 3) COPD - Spiriva - Breo Ellipta 100-25 mcg once daily 4) Dyslipidemia - Atorvastatin 20 mg DIN 5) Affective disorder - Xanax 0.5 PO BID - Lexapro 20 mg PO daily 6) DVT/ GI prophylaxis - Protonix - SCD Note: left renal cyst, stable based on review of US dated to 2012. - Date & Time Date: 10/16/17 Time: 06:04
[2017-10-16] MEDS ORDERED: CODEINE PO SCH (04:00)
[2017-10-16] MEDS ORDERED: ACETAMINOPHEN PO SCH (04:00)
[2017-10-16] MEDS: Morphine 2 mg/ml ISec IVP PRN ×3 (05:02→22:23)
[2017-10-16] MEDS: Pantoprazole 40 mg EC Tab PO SCH (05:02)
[2017-10-16 06:31] LABS: VENOUS BLOOD GAS BASE EXCESS -0.7 mmol/L (0.0-2.0); VENOUS BLOOD PH 7.29 (7.32-7.43)
[2017-10-16] MEDS ORDERED: Levalbuterol 0.63 MG/3 ML Inhal Soln UD IH PRN (07:07)
[2017-10-16] MEDS ORDERED: Albuterol-Ipratrop 3 mg / 0.5 (3 ml) UD IH SCH (07:30)
[2017-10-16] MEDS: Budesonide 0.5 mg/2 ml Inhal Susp UD IH SCH ×2 (08:40→19:42)
--- NOTE | 2017-10-16 08:59 | CON ---
PULMONARY CONSULTATION DATE: 10/16/2017 REASON FOR CONSULTATION: Abnormal CAT scan. REFERRING PHYSICIAN: Stepan Silva MD HISTORY OF PRESENT ILLNESS: The patient is a 67-year-old female, with past medical history significant for chronic obstructive pulmonary disease, positive extensive smoking history - still smokes, diabetes mellitus, atrial fibrillation, who presents to [facility] with worsening left-sided abdominal pain, nausea and excessive flatulence for the past 3 days. The patient also states to a bout of diarrhea a few days ago. In the Emergency Room , a leukocytosis was noted. The patient was thus admitted for additional evaluation. The patient denies shortness of breath at rest or dyspnea on exertion. She does state to a minimal cough over the past few days. No sputum production. No history of chest pain,coughing up of blood or chest pain - made worse with deep respirations. There is no history of temperatures, chills or infectious exposure. There is no history of night sweats, weight loss or appetite change prior to the above events. No history of leg or calf pains. No history of syncope or diaphoresis. No history of recent travel or trauma. REVIEW OF SYSTEMS: No acute urinary symptoms. No new neurologic complaints. Rest of the review of systems negative. ALLERGIES: NO KNOWN ALLERGIES. SOCIAL HISTORY: Positive for extensive tobacco usage - still smokes, no alcohol. FAMILY HISTORY: No inheritable diseases. HOME MEDICATIONS: Include prednisone, Spiriva, Breo Ellipta, Nexium, Lexapro, Coreg, Eliquis, Augmentin, albuterol HFA. PHYSICAL EXAMINATION GENERAL: The patient appears comfortable this morning. She is not short of breath at rest. VITAL SIGNS: Temperature is 98.0, pulse 82, respirations 17, blood pressure 122/74. Oxygen saturation on room air is 96%. HEENT: Normocephalic and atraumatic. No JVD. CARDIOVASCULAR: Positive S1, S2. No S3 gallop. LUNGS: Decreased breath sounds at the bases. Minimal bilateral rhonchi and wheezing are appreciated. EXTREMITIES: Mild edema. No cyanosis, no clubbing. Calves are nontender to palpation. GI: Abdomen is soft, nontender and nondistended. Bowel sounds are positive. SKIN: No acute rash. NEUROLOGIC: Limited at the present time. PERTINENT LABORATORY DATA: Chest x-ray was done yesterday and reviewed. There is minimal infiltrate noted at the left base. Abdominal and pelvic CAT scan was also done. There is a small hazy nonsolid opacity noted at the left base. There are also minimal changes at the left lingular area. The opacity at the left base is most consistent with an infiltrate/pneumonia, but could represent rounded atelectasis or an ill-defined mass. There is no lymphadenopathy. CBC: White count 17.4, hemoglobin 12.4, hematocrit 37.9, platelets of 348 thousand. Complete metabolic profile: Chloride 109, BUN 22, creatinine 1.4, AST 38, LDH 781. Rest of the metabolic profiles within normal limits. IMPRESSION: 1. Left lower lobe pneumonia. 2. Chronic obstructive pulmonary disease. 3. Acute bronchitis. 4. Renal insufficiency. 5. Atrial fibrillation. PLAN: The patient presents to [facility] with a 3-day history of worsening left-sided abdominal pain, nausea, and excessive flatulence. In the Emergency Room, a leukocytosis was noted. The patient was thus admitted for additional evaluation. I did review the CAT scan of the abdomen and pelvis. There is a small hazy nonsolid opacity noted at the left base. Again, this opacity most consistent with pneumonia. I did discuss the CAT scan with the patient at length this morning. I told her that she will need a followup CAT scan in the near future - after the completion of therapy--for comparison. I also gave her my card/information for outpatient followup. She fully agrees with the plan. The patient was pancultured and started on antibiotic therapy. Procalcitonin is ordered. On physical exam, there is mild bronchospasm noted. I will continue the current DuoNeb treatments, but change to inhaled Pulmicort. I will also add low-dose oral prednisone this morning. GI evaluation has been ordered - for the abdominal pain. The patient does feel better this morning and is clinically improved. Additional pulmonary intervention will be based on the above results, as well as the clinical status of the patient. I will discuss the above with Dr. Silva later this morning. Thank you very much for this pulmonary consultation. Johnny Huntley MD MTDD
[2017-10-16] MEDS: Insulin Reg-LOW-Coverage SC SCH ×3 (09:05→17:41)
[2017-10-16] MEDS ORDERED: Ciprofloxacin 400mg/200ml D5W 400 MG/200 ML BAG IVPB SCH (10:00)
[2017-10-16] MEDS ORDERED: MethylPREDNISolone 40 mg Vial IVP SCH (10:00)
[2017-10-16] MEDS ORDERED: VILANTEROL INH SCH (10:00)
[2017-10-16] MEDS ORDERED: FLUTICASONE INH SCH (10:00)
--- NOTE | 2017-10-16 10:28 | CARD ---
APPROVED REPORT EKG Measurement Heart [id number] <Conclusion> Sinus rhythm with premature atrial complexes LAD NSSTW changes
[2017-10-16] MEDS: Tiotropium 18 mcg Cap For Inhalation INH SCH (10:52)
[2017-10-16] MEDS: MethylPREDNISolone 40 mg Vial IVP SCH ×3 (10:52→21:27)
[2017-10-16] MEDS: cefTRIAXone 1 gm 1 GM/100 ML BAG IVPB SCH (10:53)
--- NOTE | 2017-10-16 11:23 | CP.PCM.PN ---
Subjective - Date & Time of Evaluation Date of Evaluation: 10/16/17 Time of Evaluation: 07:15 - Subjective Subjective: Osman Thompson PGY1 Addendum IM Note for Dr. Silva Patient was seen and examined at bedside with Dr. Silva. The patient states that she had an URI a couple of weeks ago and has been coughing a lot lately. The pain in her L ribcage became progressively worse since last Friday and is intolerable now. The pain is exacerbated when she coughs. She denied fevers/ chills, body aches, headaches. She did have a productive cough that has resolved. Of note, the patient presented to ED on 10/14/17 (a day prior to presenting for this admission), and had blood cultures drawn which are negative x48hrs at this current time. Objective - Vital Signs/Intake and Output Vital Signs (last 24 hours): Temp Pulse Resp BP Pulse Ox 99.2 F 100 H 20 132/83 96 10/16/17 08:42 10/16/17 10:49 10/16/17 08:42 10/16/17 10:49 10/16/17 08:42 Intake and Output: 10/16/17 10/16/17 06:59 18:59 Intake Total 360 Balance 360 - Medications Medications: Current Medications Acetylcysteine (Acetylcysteine 20%) 4 ml IH [id number] ALBERT Alprazolam (Xanax) 0.25 mg PO BID PRN; Protocol PRN Reason: Anxiety Stop: 10/23/17 03:56 Apixaban (Eliquis) 5 mg PO BID ALBERT PRN Reason: Protocol Atorvastatin Calcium (Lipitor) 20 mg PO DIN ALBERT Budesonide (Pulmicort Respules) 0.5 mg IH [id number] ALBERT Last Admin: 10/16/17 08:40 Dose: 0.5 mg Carvedilol (Coreg) 6.25 mg PO DAILY ALBERT Last Admin: 10/16/17 10:49 Dose: 6.25 mg Escitalopram Oxalate (Lexapro) 20 mg PO DAILY [facility] Fenofibrate (Tricor) 145 mg PO DAILY ALBERT Last Admin: 10/16/17 10:51 Dose: 145 mg Hydrochlorothiazide (Hydrodiuril) 25 mg PO DAILY [facility] Sodium Chloride (Sodium Chloride 0.9%) 1,000 mls @ 80 mls/hr IV .[id number] [facility] Last Admin: 10/16/17 00:24 Dose: 80 mls/hr Metronidazole (Flagyl) 500 mg in 100 mls @ 100 mls/hr IVPB Q8H ALBERT PRN Reason: Protocol Doxycycline Hyclate 100 mg/ (Sodium Chloride) 100 mls @ 100 mls/hr IVPB Q12 ALBERT PRN Reason: Protocol Ceftriaxone Sodium (Rocephin 1 Gram Ivpb (D5w)) 1 gm in 100 mls @ 100 mls/hr IVPB DAILY ALBERT PRN Reason: Protocol Last Admin: 10/16/17 10:53 Dose: 100 mls/hr Insulin Human Regular (Humulin R Low) 0 units SC ACHS ALBERT PRN Reason: Protocol Last Admin: 10/16/17 09:05 Dose: Not Given Levalbuterol HCl (Xopenex) 0.63 mg IH [id number] [facility] Losartan Potassium (Cozaar) 100 mg PO DAILY [facility] Last Admin: 10/16/17 10:48 Dose: 100 mg Methylprednisolone (Solu-Medrol) 40 mg IVP Q8 [facility] Last Admin: 10/16/17 10:52 Dose: 40 mg Morphine Sulfate (Morphine) 2 mg IVP Q4H PRN PRN Reason: Pain, severe (8-10) Last Admin: 10/16/17 05:02 Dose: 2 mg Pantoprazole Sodium (Protonix Ec Tab) 40 mg PO 0600 [facility] Last Admin: 10/16/17 05:02 Dose: 40 mg Tiotropium [employer] (Spiriva) 18 mcg INH DAILY [facility] Last Admin: 10/16/17 10:52 Dose: Not Given - Labs Labs: PT 12.9 SECONDS (9.4-12.5) H 10/16/17 00:13 INR 1.18 (0.93-1.08) H 10/16/17 00:13 APTT 32.3 Seconds (25.1-36.5) 10/16/17 00:13 - Constitutional Appears: Well, Non-toxic, No Acute Distress - Head Exam Head Exam: ATRAUMATIC, NORMOCEPHALIC - Eye Exam Eye Exam: EOMI, Normal appearance, PERRL - ENT Exam ENT Exam: Mucous Membranes Moist - Neck Exam Neck Exam: Normal Inspection - Respiratory Exam Respiratory Exam: Wheezes (diffuse b/l w/ expiration), NORMAL BREATHING PATTERN. absent: Clear to Ausculation Bilateral, Rales - Cardiovascular Exam Cardiovascular Exam: RRR, +S1, +S2. absent: JVD - GI/Abdominal Exam GI & Abdominal Exam: Soft, Normal Bowel Sounds. absent: Distended, Tenderness - Extremities Exam Extremities Exam: Full ROM, Normal Inspection. absent: Calf Tenderness, Pedal Edema - Back Exam Back Exam: NORMAL INSPECTION - Neurological Exam Neurological Exam: Alert, Awake, Oriented x3 - Psychiatric Exam Psychiatric exam: Normal Affect, Normal Mood - Skin Skin Exam: Normal Color, Warm Assessment and Plan - Assessment and Plan (Free Text) Assessment: 67 yo F with a past medical history of COPD, chronic tobacco use, atrial fibrillation, hypertension, nephrolithiasis s/p right nephrectomy, who presents with LUQ pain and associated nausea and lower left rib pain likely 2/2 chronic cough vs pneumonia but must r/o mass given hx of tobacco use. Plan: LUQ vs L rib pain - Given the patient's chronic smoking and lesion Abdominal/Pelvis CT (ill- defined ovoid lesion in the left lower lobe measuring 2.7 x 2.6 cm). Finding is new compared with Chest CT from 09/17/17. - Pulm was consulted, recs appreciated - CT Chest was ordered to r/o pneumonia or mass. COPD exacerbation, not managed on PO antibiotics and steroids at home - patient remains on IV antibiotics - started on IV steroids and Xopenex instead of Duoneb given pt's HR, along with Mucomyst Will continue the rest of management according to note written by Dr. Dowling. Patient was seen, examined and discussed with attending, Dr. Shira Thompson PGY1 Pager # [phone]
[2017-10-16] MEDS: Levalbuterol 0.63 MG/3 ML Inhal Soln UD IH SCH ×4 (11:40→23:29)
[2017-10-16] MEDS: metroNIDAZOLE IV 500 mg/100 ml 500 MG/100 ML BAG IVPB SCH ×2 (12:34→21:19)
[2017-10-16] MEDS: Acetylcysteine 20% Inhal Soln (4ml) IH SCH ×2 (14:58→19:42)
--- NOTE | 2017-10-16 15:20 | RAD ---
HISTORY: cp COMPARISON: 10/14/2017 FINDINGS: LUNGS: No active pulmonary disease. PLEURA: No significant pleural effusion identified, no pneumothorax apparent. CARDIOVASCULAR: Normal. OSSEOUS STRUCTURES: No significant abnormalities. VISUALIZED UPPER ABDOMEN: Normal. OTHER FINDINGS: None. IMPRESSION: No active disease.
--- NOTE | 2017-10-16 17:55 | CT ---
PROCEDURE: CT Chest without contrast HISTORY: r/o pneumonia COMPARISON: 09/17/2017. TECHNIQUE: Contiguous axial images were obtained through the chest without intravenous contrast enhancement. Sagittal and coronal reconstructions were performed. Radiation dose (DLP): 929.23 mGy-cm. This CT exam was performed using one or more of the following dose reduction techniques: Automated exposure control, adjustment of the mA and/or kV according to patient size, and/or use of iterative reconstruction technique. FINDINGS: LUNGS: Multifocal subsegmental infiltrates identified bilaterally to a greater extent than the left lung than the right. Most likely etiologies are infectious/ inflammatory. Less likely would be atypical mild pulmonary edema. MEDIASTINUM: Unremarkable thoracic aorta. No aneurysm. Normal sized heart. Main pulmonary artery unremarkable. No vascular congestion. No lymphadenopathy. PLEURA: No pleural fluid. No pneumothorax. BONES: Evidence of old healed left 6th rib fracture. UPPER ABDOMEN: Grossly unremarkable.Incidental finding(s): Focal calcification linear about the surface of the liver likely posttraumatic. OTHER FINDINGS: Cystic nodule right lobe of the thyroid. Elective ultrasound recommended. IMPRESSION: Faint multifocal subsegmental alveolar changes likely mild pulmonary edema. This represents a new finding compared to the prior CT scan.
--- NOTE | 2017-10-16 19:20 | CP.PCM.CON ---
<Elizabeth Jimenez - Last Filed: 10/16/17 19:19> History of Present Illness - History of Present Illness History of Present Illness: Seen and examined at the bedside earlier today, the chart was reviewed. Request for GI consult is for abdominal pain. HPI:this is a 67-year-old female with a past medical history of COPD, right nephrectomy secondary to complication from nephrolithiasis, chronic kidney disease, diabetes mellitus type 2, atrial fibrillation on Eliquis, came to the emergency room with left upper quaderant. The patient also had nausea and complaining of excessive gas. The patient states that the pain is intermittent in, and radiates from left upper quadrant to her back. The patient states that she has be having increased coughing for the past 48 hours. Denies fever, chills, shortness of breath, chest pain, overt GI bleed. The patient does complain of diarrhea, she has history of antibiotic use. On admission the patient had a CT scan of abdomen and pelvis without contrast, report reviewed showing diverticulosis, no obstruction or diverticulitis. There is a hernia mesh along the righ, left kidney cyst, left lower lobe ovoid lesion possibly in infiltrate, rounded atelectasis or undefined mass, patient was seen by pulmonology. Patient last EGD and colonoscopy was done at [place] by Dr. Ribeiro, does not recall any acute findings. Past medical history: COPD/asthma, diabetes mellitus type 2, chronic kidney disease, atrial fibrillation, sleep apnea Past surgical history: Right nephrectomy, cholecystectomy Family history: Noncontributory at this time Allergies: No known drug allergies Social history: 67-gydi-fwzp history, denies EtOH or drug use Medications: Reviewed as per [facility] ROS: Systems reviewed with positive finding see HPI. Past Patient History - Infectious Disease Hx of Infectious Diseases: None - Tetanus Immunizations Tetanus Immunization: Unknown - Past Medical History & Family History Past Medical History?: Yes - Past Social History Smoking Status: y - CARDIAC Hx Cardiac Disorders: Yes Hx Atrial Fibrillation: Yes Hx Hypertension: Yes - PULMONARY Hx Respiratory Disorders: Yes Hx Asthma: Yes Hx Bronchitis: Yes Hx Pneumonia: Yes (3 years ago) Hx Sleep Apnea: Yes (c pap) - RENAL Hx Chronic Kidney Disease: Yes Hx Kidney Stones: Yes (right nephrectomy due to many large stones) - ENDOCRINE/METABOLIC Hx Endocrine Disorders: Yes Hx Diabetes Mellitus Type 2: Yes - MUSCULOSKELETAL/RHEUMATOLOGICAL Hx Falls: No - GASTROINTESTINAL Hx Gastrointestinal Disorders: Yes Hx Gall Bladder Disease: Yes Hx Gastroesophageal Reflux: Yes - PSYCHIATRIC Hx Psychophysiologic Disorder: Yes Hx Anxiety: Yes Hx Depression: Yes Hx Substance Use: No - SURGICAL HISTORY Hx Orthopedic Surgery: Yes (bilat bunionectomy) Other/Comment: right nephrectomy - ANESTHESIA Hx Anesthesia: Yes Hx Anesthesia Reactions: No Hx Malignant Hyperthermia: No Meds Allergies/Adverse Reactions: Allergies Allergy/AdvReac Type Severity Reaction Status Date / Time No Known Allergies Allergy Verified 10/14/17 06:36 - Medications Medications: Current Medications Acetylcysteine (Acetylcysteine 20%) 4 ml IH [id number] [facility] Last Admin: 10/16/17 14:58 Dose: 4 ml Alprazolam (Xanax) 0.25 mg PO BID PRN; Protocol PRN Reason: Anxiety Stop: 10/23/17 03:56 Apixaban (Eliquis) 5 mg PO BID [facility] PRN Reason: Protocol Last Admin: 10/16/17 17:40 Dose: 5 mg Atorvastatin Calcium (Lipitor) 20 mg PO DIN [facility] Last Admin: 10/16/17 17:40 Dose: 20 mg Budesonide (Pulmicort Respules) 0.5 mg IH [id number] [facility] Last Admin: 10/16/17 08:40 Dose: 0.5 mg Carvedilol (Coreg) 6.25 mg PO DAILY [facility] Last Admin: 10/16/17 10:49 Dose: 6.25 mg Escitalopram Oxalate (Lexapro) 20 mg PO DAILY [facility] Last Admin: 10/16/17 10:40 Dose: 20 mg Fenofibrate (Tricor) 145 mg PO DAILY [facility] Last Admin: 10/16/17 10:51 Dose: 145 mg Hydrochlorothiazide (Hydrodiuril) 25 mg PO DAILY [facility] Last Admin: 10/16/17 12:36 Dose: 25 mg Sodium Chloride (Sodium Chloride 0.9%) 1,000 mls @ 80 mls/hr IV .[id number] [facility] Last Admin: 10/16/17 13:58 Dose: 80 mls/hr Metronidazole (Flagyl) 500 mg in 100 mls @ 100 mls/hr IVPB Q8H [facility] PRN Reason: Protocol Last Admin: 10/16/17 12:34 Dose: 100 mls/hr Doxycycline Hyclate 100 mg/ (Sodium Chloride) 100 mls @ 100 mls/hr IVPB Q12 [facility] PRN Reason: Protocol Last Admin: 10/16/17 15:01 Dose: 100 mls/hr Ceftriaxone Sodium (Rocephin 1 Gram Ivpb (D5w)) 1 gm in 100 mls @ 100 mls/hr IVPB DAILY [facility] PRN Reason: Protocol Last Admin: 10/16/17 10:53 Dose: 100 mls/hr Insulin Human Regular (Humulin R Low) 0 units SC ACHS [facility] PRN Reason: Protocol Last Admin: 10/16/17 17:41 Dose: 1 units Levalbuterol HCl (Xopenex) 0.63 mg IH [id number] [facility] Last Admin: 10/16/17 14:59 Dose: 0.63 mg Losartan Potassium (Cozaar) 100 mg PO DAILY [facility] Last Admin: 10/16/17 10:48 Dose: 100 mg Methylprednisolone (Solu-Medrol) 40 mg IVP Q8 [facility] Last Admin: 10/16/17 14:49 Dose: 40 mg Morphine Sulfate (Morphine) 2 mg IVP Q4H PRN PRN Reason: Pain, severe (8-10) Last Admin: 10/16/17 15:01 Dose: 2 mg Pantoprazole Sodium (Protonix Ec Tab) 40 mg PO 0600 [facility] Last Admin: 10/16/17 05:02 Dose: 40 mg Tiotropium [place] (Spiriva) 18 mcg INH DAILY [facility] Last Admin: 10/16/17 10:52 Dose: Not Given Physical Exam - Constitutional Appears: No Acute Distress - Head Exam Head Exam: NORMOCEPHALIC - Eye Exam Eye Exam: Normal appearance. absent: Scleral icterus - ENT Exam ENT Exam: Mucous Membranes Moist - Neck Exam Neck exam: Positive for: Normal Inspection - Respiratory Exam Respiratory Exam: NORMAL BREATHING PATTERN. absent: Respiratory Distress - Cardiovascular Exam Cardiovascular Exam: +S1, +S2 - GI/Abdominal Exam GI & Abdominal Exam: Normal Bowel Sounds, Soft, Tenderness (ruq). absent: Guarding, Organomegaly, Rebound - Extremities Exam Extremities exam: Positive for: pedal pulses present. Negative for: calf tenderness, pedal edema - Neurological Exam Neurological exam: Alert, Oriented x3 - Skin Skin Exam: Dry, Warm Results - Vital Signs Recent Vital Signs: Last Vital Signs Temp 98 F 10/16/17 16:00 Pulse 61 10/16/17 16:00 Resp 18 10/16/17 16:00 BP 129/72 10/16/17 16:00 Pulse Ox 100 10/16/17 16:00 - Labs Result Diagrams: 10/16/17 00:13 10/16/17 00:13 Labs: Laboratory Results - last 24 hr 10/16/17 10/16/17 10/16/17 06:15 06:37 08:57 pO2 40 VBG pH 7.29 L VBG pCO2 56.0 VBG HCO3 26.9 VBG Total CO2 28.6 H VBG O2 Sat (Calc) 76.4 H VBG Base Excess -0.7 L VBG Potassium 3.5 L Sodium 140.0 Chloride 109.0 H Glucose 101 Lactate 1.0 FiO2 21.0 POC Glucose (mg/dL) 98 Procalcitonin 0.27 Venous Blood Potassium 3.5 L 10/16/17 10/16/17 11:14 16:28 pO2 VBG pH VBG pCO2 VBG HCO3 VBG Total CO2 VBG O2 Sat (Calc) VBG Base Excess VBG Potassium Sodium Chloride Glucose Lactate FiO2 POC Glucose (mg/dL) 87 153 H Procalcitonin Venous Blood Potassium Assessment & Plan - Assessment and Plan (Free Text) Assessment: Assessment: LUQ Abdominal pain /Lback/rib pain may be secondary to strain muscle, increase coughing Diarrhea rule out C. difficile, history of antibiotic use Left lower lobe ovoid lesion, r/o mass History of asthma/COPD, Exacerabation Atrial fibrillation Chronic kidney disease Plan: Pending stool for C. difficile Continue GI prophylaxis diet as tolerated IV antibiotics On Solu-Medrol Respiratory treatments Pulmonary follow-up Thank you for this consult and for allowing us to participate in your patient's care, further recommendations based on clinical course. Seen and discussed with Dr. Millan. <Hua Millan V - Last Filed: 10/16/17 23:25> Meds - Medications Medications: Current Medications Acetylcysteine (Acetylcysteine 20%) 4 ml IH [id number] [facility] Last Admin: 10/16/17 19:42 Dose: 4 ml Alprazolam (Xanax) 0.25 mg PO BID PRN; Protocol PRN Reason: Anxiety Stop: 10/23/17 03:56 Apixaban (Eliquis) 5 mg PO BID [facility] PRN Reason: Protocol Last Admin: 10/16/17 17:40 Dose: 5 mg Atorvastatin Calcium (Lipitor) 20 mg PO DIN [facility] Last Admin: 10/16/17 17:40 Dose: 20 mg Budesonide (Pulmicort Respules) 0.5 mg IH [id number] [facility] Last Admin: 10/16/17 19:42 Dose: 0.5 mg Carvedilol (Coreg) 6.25 mg PO DAILY [facility] Last Admin: 10/16/17 10:49 Dose: 6.25 mg Escitalopram Oxalate (Lexapro) 20 mg PO DAILY [facility] Last Admin: 10/16/17 10:40 Dose: 20 mg Fenofibrate (Tricor) 145 mg PO DAILY [facility] Last Admin: 10/16/17 10:51 Dose: 145 mg Hydrochlorothiazide (Hydrodiuril) 25 mg PO DAILY [facility] Last Admin: 10/16/17 12:36 Dose: 25 mg Sodium Chloride (Sodium Chloride 0.9%) 1,000 mls @ 80 mls/hr IV .[id number] [facility] Last Admin: 10/16/17 13:58 Dose: 80 mls/hr Metronidazole (Flagyl) 500 mg in 100 mls @ 100 mls/hr IVPB Q8H [facility] PRN Reason: Protocol Last Admin: 10/16/17 21:19 Dose: 100 mls/hr Doxycycline Hyclate 100 mg/ (Sodium Chloride) 100 mls @ 100 mls/hr IVPB Q12 [facility] PRN Reason: Protocol Last Admin: 10/16/17 21:26 Dose: 100 mls/hr Ceftriaxone Sodium (Rocephin 1 Gram Ivpb (D5w)) 1 gm in 100 mls @ 100 mls/hr IVPB DAILY [facility] PRN Reason: Protocol Last Admin: 10/16/17 10:53 Dose: 100 mls/hr Insulin Human Regular (Humulin R Low) 0 units SC ACHS [facility] PRN Reason: Protocol Last Admin: 10/16/17 17:41 Dose: 1 units Levalbuterol HCl (Xopenex) 0.63 mg IH [id number] [facility] Last Admin: 10/16/17 19:42 Dose: 0.63 mg Losartan Potassium (Cozaar) 100 mg PO DAILY [facility] Last Admin: 10/16/17 10:48 Dose: 100 mg Methylprednisolone (Solu-Medrol) 40 mg IVP Q8 [facility] Last Admin: 10/16/17 21:27 Dose: 40 mg Morphine Sulfate (Morphine) 2 mg IVP Q4H PRN PRN Reason: Pain, severe (8-10) Last Admin: 10/16/17 22:23 Dose: 2 mg Pantoprazole Sodium (Protonix Ec Tab) 40 mg PO 0600 [facility] Last Admin: 10/16/17 05:02 Dose: 40 mg Tiotropium [place] (Spiriva) 18 mcg INH DAILY [facility] Last Admin: 10/16/17 10:52 Dose: Not Given Results - Vital Signs Recent Vital Signs: Last Vital Signs Temp 98 F 10/16/17 16:00 Pulse 61 10/16/17 16:00 Resp 18 10/16/17 16:00 BP 129/72 10/16/17 16:00 Pulse Ox 100 10/16/17 16:00 - Labs Result Diagrams: 10/16/17 00:13 10/16/17 00:13 Labs: Laboratory Results - last 24 hr 10/16/17 10/16/17 10/16/17 06:15 06:37 08:57 pO2 40 VBG pH 7.29 L VBG pCO2 56.0 VBG HCO3 26.9 VBG Total CO2 28.6 H VBG O2 Sat (Calc) 76.4 H VBG Base Excess -0.7 L VBG Potassium 3.5 L Sodium 140.0 Chloride 109.0 H Glucose 101 Lactate 1.0 FiO2 21.0 POC Glucose (mg/dL) 98 Procalcitonin 0.27 Venous Blood Potassium 3.5 L 10/16/17 10/16/17 10/16/17 11:14 16:28 21:37 pO2 VBG pH VBG pCO2 VBG HCO3 VBG Total CO2 VBG O2 Sat (Calc) VBG Base Excess VBG Potassium Sodium Chloride Glucose Lactate FiO2 POC Glucose (mg/dL) 87 153 H 140 H Procalcitonin Venous Blood Potassium Attending/Attestation - Attestation I have personally seen and examined this patient.: Yes I have fully participated in the care of the patient.: Yes I have reviewed all pertinent clinical information: Yes Notes (Text): This is an addendum to GI consult report dictated by Elizabeth Jimenez APN.The patient was seen and examined earlier. Medical records, lab studies, imagings were reviewed. Last 24 hours events reviewed. Agreed with the above treatment plan as outlined in Elizabeth Jimenez APN's notes the with the addition of the following abdomen soft no Tolerating the diet Would benefit from elective EGD and colonoscopy Discussed with the patient at length and she understood 10/16/17 23:24
[2017-10-17] MEDS: Insulin Reg-LOW-Coverage SC SCH ×2 (01:04→07:52)
[2017-10-17] MEDS: Levalbuterol 0.63 MG/3 ML Inhal Soln UD IH SCH ×3 (05:11→11:09)
[2017-10-17] MEDS: Acetylcysteine 20% Inhal Soln (4ml) IH SCH ×2 (05:11→08:33)
[2017-10-17] MEDS ORDERED: metroNIDAZOLE IV 500 mg/100 ml 500 MG/100 ML BAG IVPB SCH (05:25)
[2017-10-17] MEDS: Pantoprazole 40 mg EC Tab PO SCH (05:28)
[2017-10-17] MEDS: Sodium Chloride 0.9% 1,000 ML IV SCH (05:29)
[2017-10-17] MEDS: MethylPREDNISolone 40 mg Vial IVP SCH (05:29)
[2017-10-17] MEDS: metroNIDAZOLE IV 500 mg/100 ml 500 MG/100 ML BAG IVPB SCH (05:34)
[2017-10-17 06:57] LABS: BASO # 0.02 K/mm3 (0.0-2.0); BASO % 0.2 % (0.0-3.0); EOS % 0.3 % (1.5-5.0); GRAN # 9.6 (1.4-6.5); GRAN % 80.8 % (50.0-68.0); HEMATOCRIT 36.2 % (36.0-48.0); LYMPH # 1.8 (1.2-3.4); LYMPH % 14.7 % (22.0-35.0); MEAN CELL VOLUME 95.5 fl (80.0-105.0); MEAN CORPUSCULAR HEMOGLOBIN 30.1 pg (25.0-35.0); MEAN CORPUSCULAR HGB CONC 31.5 g/dl (31.0-37.0); MEAN PLATELET VOLUME 11.7 fl (7.0-11.0); MONO # 0.5 (0.1-0.6); RED CELL DISTRIBUTION WIDTH 15.1 % (11.5-14.5); WHITE BLOOD COUNT 11.9 10^3/ul (4.5-11.0)
[2017-10-17 07:30] VITALS: BP 120/69; PULSE 68; RESP 20; TEMP 98.9; O2SAT 97
[2017-10-17 07:36] LABS: BILIRUBIN,TOTAL 0.3 mg/dL (0.2-1.3); CALCIUM 9.1 mg/dL (8.4-10.5); TOTAL PROTEIN 6.6 g/dL (5.8-8.3)
--- NOTE | 2017-10-17 08:22 | PN ---
DATE: 10/17/2017 PULMONARY PROGRESS NOTE SUBJECTIVE: The patient appears very comfortable this morning. She is not short of breath at rest. She has much less abdominal pain. OBJECTIVE: VITAL SIGNS (LAST NOTED IN THE COMPUTER): Temperature is 98.0, pulse is 61, respirations are 18, and blood pressure is 129/72. Oxygen saturation on room air is 100%. HEENT: Normocephalic and atraumatic. NECK: No JVD. CARDIOVASCULAR: Positive S1, S2. No S3 gallop. LUNGS: Better breath sounds at the bases. Much less rhonchi. No wheezing this morning. EXTREMITIES: Mild edema. No cyanosis, no clubbing. Calves are nontender to palpation. GASTROINTESTINAL: Abdomen is soft, nontender, and nondistended. Bowel sounds are positive. SKIN: No acute rash. NEUROLOGIC: Exam limited at the present time. PERTINENT LABORATORY DATA: CAT scan of the chest was done yesterday and reviewed. There are some small patchy infiltrates noted bilaterally - most pronounced in the left lower lobe. There is no lymphadenopathy. Findings are most consistent with infectious/inflammatory etiology. IMPRESSION: 1. Community-acquired pneumonia. 2. Chronic obstructive pulmonary disease. 3. Acute bronchitis. 4. Renal insufficiency. 5. Atrial fibrillation. PLAN: The patient appears very comfortable this morning. She is not short of breath at rest. She also states to much less abdominal pain. She states she is feeling much, much better overall. I did review the CAT scan of the chest. There are some small patchy bilateral infiltrates noted - most prominent in the left lower lobe. Findings are most consistent with an inflammatory/infectious etiology. I have also reviewed the laboratory data. A negative procalcitonin is negative. However, given the above history and CAT scan findings, I would still continue the antibiotic coverage for now. Again, I did impress upon the patient that she will need a followup CAT scan - as an outpatient--after the completion of treatment. She is very well aware, and fully agrees to follow up with me in the office. On physical exam, there is a significant decrease in the bronchospasm. In addition, the oxygen saturation on room air is now 100%. I will continue the current nebulizer treatments and decrease the intravenous steroids. Clinical status of the patient is significantly improved overall. I will discuss the above with the attending physician. Johnny Huntley MD [facility] # [id number]
[2017-10-17] MEDS: Budesonide 0.5 mg/2 ml Inhal Susp UD IH SCH (08:33)
[2017-10-17] MEDS ORDERED: MethylPREDNISolone 40 mg Vial IVP SCH (10:00)
--- NOTE | 2017-10-17 10:05 | CP.PCM.PN ---
Subjective - Date & Time of Evaluation Date of Evaluation: 10/17/17 Time of Evaluation: 08:10 - Subjective Subjective: The patient was seen and examined at bedside. She offered no complaints and states that she is feeling much better overall. She denies having diarrhea before coming to the hospital and is agitated that she has developed severe diarrhea after taking the antibiotics. It was explained to the patient in detail that her CT findings are suggestive of pneumonia and that is why we must continue to treat her with antibiotics. The patient states that she is unsatisfied with the treatment that she has been receiving and states that she wants to sign out, even against medical advice. She denies cp, sob, n/v, cough, fevers/chill, abdominal pain. She states that her diarrhea is very watery. Objective - Vital Signs/Intake and Output Vital Signs (last 24 hours): Temp Pulse Resp BP Pulse Ox 98.9 F 68 20 120/69 97 10/17/17 07:30 10/17/17 07:30 10/17/17 07:30 10/17/17 07:30 10/17/17 07:30 Intake and Output: 10/17/17 10/17/17 06:59 18:59 Intake Total 2524 Balance 2524 - Medications Medications: Current Medications Acetylcysteine (Acetylcysteine 20%) 4 ml IH [id number] [facility] Last Admin: 10/17/17 08:33 Dose: 4 ml Alprazolam (Xanax) 0.25 mg PO BID PRN; Protocol PRN Reason: Anxiety Stop: 10/23/17 03:56 Apixaban (Eliquis) 5 mg PO BID [facility] PRN Reason: Protocol Last Admin: 10/16/17 17:40 Dose: 5 mg Atorvastatin Calcium (Lipitor) 20 mg PO DIN [facility] Last Admin: 10/16/17 17:40 Dose: 20 mg Budesonide (Pulmicort Respules) 0.5 mg IH [id number] [facility] Last Admin: 10/17/17 08:33 Dose: 0.5 mg Carvedilol (Coreg) 6.25 mg PO DAILY [facility] Last Admin: 10/16/17 10:49 Dose: 6.25 mg Escitalopram Oxalate (Lexapro) 20 mg PO DAILY [facility] Last Admin: 10/16/17 10:40 Dose: 20 mg Fenofibrate (Tricor) 145 mg PO DAILY [facility] Last Admin: 10/16/17 10:51 Dose: 145 mg Hydrochlorothiazide (Hydrodiuril) 25 mg PO DAILY [facility] Last Admin: 10/16/17 12:36 Dose: 25 mg Sodium Chloride (Sodium Chloride 0.9%) 1,000 mls @ 80 mls/hr IV .[id number] [facility] Last Admin: 10/17/17 05:29 Dose: 80 mls/hr Doxycycline Hyclate 100 mg/ (Sodium Chloride) 100 mls @ 100 mls/hr IVPB Q12 [facility] PRN Reason: Protocol Last Admin: 10/16/17 21:26 Dose: 100 mls/hr Ceftriaxone Sodium (Rocephin 1 Gram Ivpb (D5w)) 1 gm in 100 mls @ 100 mls/hr IVPB DAILY [facility] PRN Reason: Protocol Last Admin: 10/16/17 10:53 Dose: 100 mls/hr Metronidazole (Flagyl) 500 mg in 100 mls @ 100 mls/hr IVPB Q8H [facility] PRN Reason: Protocol Last Admin: 10/17/17 05:28 Dose: 100 mls/hr Insulin Human Regular (Humulin R Low) 0 units SC ACHS [facility] PRN Reason: Protocol Last Admin: 10/17/17 07:52 Dose: Not Given Levalbuterol HCl (Xopenex) 0.63 mg IH [id number] [facility] Last Admin: 10/17/17 08:33 Dose: 0.63 mg Losartan Potassium (Cozaar) 100 mg PO DAILY [facility] Last Admin: 10/16/17 10:48 Dose: 100 mg Methylprednisolone (Solu-Medrol) 40 mg IVP Q12 [facility] Morphine Sulfate (Morphine) 2 mg IVP Q4H PRN PRN Reason: Pain, severe (8-10) Last Admin: 10/16/17 22:23 Dose: 2 mg Pantoprazole Sodium (Protonix Ec Tab) 40 mg PO 0600 [facility] Last Admin: 10/17/17 05:28 Dose: 40 mg Tiotropium [place] (Spiriva) 18 mcg INH DAILY [facility] Last Admin: 10/16/17 10:52 Dose: Not Given - Labs Labs: 10/17/17 06:20 10/17/17 06:20 PT 12.9 SECONDS (9.4-12.5) H 10/16/17 00:13 INR 1.18 (0.93-1.08) H 10/16/17 00:13 APTT 32.3 Seconds (25.1-36.5) 10/16/17 00:13
[2017-10-17] MEDS: cefTRIAXone 1 gm 1 GM/100 ML BAG IVPB SCH (10:29)
[2017-10-17] MEDS: Tiotropium 18 mcg Cap For Inhalation INH SCH (10:30)
[2017-10-17] MEDS ORDERED: Lactobacillus Acidophilus 500 MU Cap PO SCH (10:45)
--- NOTE | 2017-10-17 14:54 | CP.PCM.PN ---
Subjective - Date & Time of Evaluation Date of Evaluation: 10/17/17 Time of Evaluation: 10:45 - Subjective Subjective: Seen and examined at the bedside earlier today, chart reviewed. Patient reports that pain to left upper quadrant has resolved. Denies pain. No nausea , vomiting, or reports of overt GI bleed. She is still having loose stools. Difficulty in obtaining stool for C. difficile as it gets mixed with urine. Denies fever or chills. No SOB or chest pain.Coughing improved. Patient had CT scan of the chest yesterday, report reviewed: Faint multifocal subsegmental alveolar changes likely mild pulmonary edema. This represents a new finding compared to the prior CT scan.Healed 6 th rib fracture, patient denies any injury. Objective - Vital Signs/Intake and Output Vital Signs (last 24 hours): Temp Pulse Resp BP Pulse Ox 98.9 F 68 20 120/69 97 10/17/17 07:30 10/17/17 10:27 10/17/17 07:30 10/17/17 10:27 10/17/17 07:30 Intake and Output: 10/17/17 10/17/17 06:59 18:59 Intake Total 2524 Balance 2524 - Labs Labs: 10/17/17 06:20 10/17/17 06:20 PT 12.9 SECONDS (9.4-12.5) H 10/16/17 00:13 INR 1.18 (0.93-1.08) H 10/16/17 00:13 APTT 32.3 Seconds (25.1-36.5) 10/16/17 00:13 - Constitutional Appears: No Acute Distress - Head Exam Head Exam: NORMOCEPHALIC - Eye Exam Eye Exam: Normal appearance. absent: Scleral icterus - ENT Exam ENT Exam: Mucous Membranes Moist - Neck Exam Neck Exam: Normal Inspection - Respiratory Exam Respiratory Exam: Decreased Breath Sounds, NORMAL BREATHING PATTERN. absent: Respiratory Distress - Cardiovascular Exam Cardiovascular Exam: +S1, +S2 - GI/Abdominal Exam GI & Abdominal Exam: Soft, Normal Bowel Sounds. absent: Guarding, Tenderness, Rebound - Extremities Exam Extremities Exam: absent: Calf Tenderness, Pedal Edema - Neurological Exam Neurological Exam: Alert, Awake, Oriented x3 - Skin Skin Exam: Dry, Warm Assessment and Plan - Assessment and Plan (Free Text) Assessment: Assessment: LUQ Abdominal pain /Lback/rib pain may be secondary to strain muscle, increase coughing, resolved Diarrhea rule out C. difficile, history of antibiotic use Left lower lobe ovoid lesion, r/o mass History of asthma/COPD, Exacerabation Atrial fibrillation Chronic kidney disease Plan: Pending stool for C. difficile, unable to obtain, stool mixed with urine Continue GI prophylaxis diet as tolerated on IV antibiotics Start probiotic Start Flagyl 250 QID for 10 days, patient still having loose BMs, history recent antibiotic use for upper respiratory On Solu-Medrol Respiratory treatments Pulmonary follow-up discussed with patient regarding elective outpatient Seen and discussed with Dr. Millan.
--- NOTE | 2017-10-18 05:48 | CP.PCM.DIS ---
Provider - Provider Date of Admission: 10/16/17 02:25 Attending physician: Stepan Silva MD Primary care physician: Stepan Silva MD Time Spent in preparation of Discharge (in minutes): 40 Diagnosis - Discharge Diagnosis (1) CAP (community acquired pneumonia) Status: Acute (2) Colitis Status: Acute (3) COPD (chronic obstructive pulmonary disease) Status: Acute (4) A-fib Status: Chronic (5) HTN (hypertension) Status: Chronic (6) HLD (hyperlipidemia) Status: Chronic Hospital Course - Lab Results Lab Results: Most Recent Lab Values WBC 11.9 10^3/ul (4.5-11.0) H D 10/17/17 06:20 RBC 3.79 10^6/uL (3.5-6.1) 10/17/17 06:20 Hgb 11.4 g/dL (12.0-16.0) L 10/17/17 06:20 Hct 36.2 % (36.0-48.0) 10/17/17 06:20 MCV 95.5 fl (80.0-105.0) 10/17/17 06:20 MCH 30.1 pg (25.0-35.0) 10/17/17 06:20 MCHC 31.5 g/dl (31.0-37.0) 10/17/17 06:20 RDW 15.1 % (11.5-14.5) H 10/17/17 06:20 Plt Count 343 10^3/uL (120.0-450.0) 10/17/17 06:20 MPV 11.7 fl (7.0-11.0) H 10/17/17 06:20 Gran % 80.8 % (50.0-68.0) H 10/17/17 06:20 Lymph % (Auto) 14.7 % (22.0-35.0) L 10/17/17 06:20 [place] % (Auto) 4.0 % (1.0-6.0) 10/17/17 06:20 Eos % (Auto) 0.3 % (1.5-5.0) L 10/17/17 06:20 Baso % (Auto) 0.2 % (0.0-3.0) 10/17/17 06:20 Gran # 9.60 (1.4-6.5) H 10/17/17 06:20 Lymph # 1.8 (1.2-3.4) 10/17/17 06:20 [place] # 0.5 (0.1-0.6) 10/17/17 06:20 Eos # 0.0 (0.0-0.7) 10/17/17 06:20 Baso # 0.02 K/mm3 (0.0-2.0) 10/17/17 06:20 PT 12.9 SECONDS (9.4-12.5) H 10/16/17 00:13 INR 1.18 (0.93-1.08) H 10/16/17 00:13 APTT 32.3 Seconds (25.1-36.5) 10/16/17 00:13 pO2 40 mm/Hg (30-55) 10/16/17 06:15 VBG pH 7.29 (7.32-7.43) L 10/16/17 06:15 VBG pCO2 56.0 (40-60) 10/16/17 06:15 VBG HCO3 26.9 mmol/l (21-28) 10/16/17 06:15 VBG Total CO2 28.6 mmol.L (22-28) H 10/16/17 06:15 VBG O2 Sat (Calc) 76.4 % (40-65) H 10/16/17 06:15 VBG Base Excess -0.7 mmol/L (0.0-2.0) L 10/16/17 06:15 VBG Potassium 3.5 mmol/L (3.6-5.2) L 10/16/17 06:15 Sodium 140.0 mmol/L (132-148) 10/16/17 06:15 Chloride 109.0 mmol/L (98-107) H 10/16/17 06:15 Glucose 101 mg/dl (65-105) 10/16/17 06:15 Lactate 1.0 mmol/L (0.7-2.1) 10/16/17 06:15 FiO2 21.0 % 10/16/17 06:15 Sodium 141 mmol/L (132-148) 10/17/17 06:20 Potassium 4.0 mmol/L (3.6-5.0) 10/17/17 06:20 Chloride 110 mmol/L (98-107) H 10/17/17 06:20 Carbon Dioxide 24 mmol/L (21-33) 10/17/17 06:20 Anion Gap 11 (10-20) 10/17/17 06:20 BUN 28 mg/dL (7-21) H 10/17/17 06:20 Creatinine 1.2 mg/dl (0.7-1.2) 10/17/17 06:20 Est GFR ( Amer) 55 10/17/17 06:20 Est GFR (Non-Af Amer) 45 10/17/17 06:20 POC Glucose (mg/dL) 180 mg/dL (65-110) H 10/17/17 11:16 Random Glucose 135 mg/dL (70-110) H 10/17/17 06:20 Calcium 9.1 mg/dL (8.4-10.5) 10/17/17 06:20 Total Bilirubin 0.3 mg/dL (0.2-1.3) 10/17/17 06:20 AST 31 U/L (14-36) 10/17/17 06:20 ALT 29 U/L (7-56) 10/17/17 06:20 Alkaline Phosphatase 53 U/L (38-126) 10/17/17 06:20 Lactate Dehydrogenase 781 U/L (333-699) H 10/16/17 00:13 Total Creatine Kinase 90 U/L (35-230) 10/16/17 00:13 Troponin I < 0.01 ng/mL 10/16/17 00:13 Total Protein 6.6 g/dL (5.8-8.3) 10/17/17 06:20 Albumin 3.4 g/dL (3.0-4.8) 10/17/17 06:20 Globulin 3.2 gm/dL 10/17/17 06:20 Albumin/Globulin Ratio 1.0 (1.1-1.8) L 10/17/17 06:20 Amylase 61 U/L (35-125) 10/16/17 00:13 Lipase 84 U/L (23-300) 10/16/17 00:13 Procalcitonin 0.27 NG/ML (0.19-0.49) 10/16/17 06:37 Venous Blood Potassium 3.5 mmol/L (3.6-5.2) L 10/16/17 06:15 Urine Color Yellow (YELLOW) 10/16/17 00:30 Urine Appearance Clear (CLEAR) 10/16/17 00:30 Urine pH 6.0 (4.7-8.0) 10/16/17 00:30 Ur Specific [place] 1.025 (1.005-1.035) 10/16/17 00:30 Urine Protein 100 mg/dL (<30 mg/dL) H 10/16/17 00:30 Urine Glucose (UA) Negative mg/dL (NEGATIVE) 10/16/17 00:30 Urine Ketones Negative mg/dL (NEGATIVE) 10/16/17 00:30 Urine Blood Small (NEGATIVE) H 10/16/17 00:30 Urine Nitrate Negative (NEGATIVE) 10/16/17 00:30 Urine Bilirubin Negative (NEGATIVE) 10/16/17 00:30 Urine Urobilinogen 0.2 E.U./dL (<1 E.U./dL) 10/16/17 00:30 Ur Leukocyte Esterase Negative [place]/uL (NEGATIVE) 10/16/17 00:30 Urine RBC 1 - 3 /hpf (0-2) 10/16/17 00:30 Urine WBC 0 - 2 /hpf (0-6) 10/16/17 00:30 Ur Epithelial Cells 1 - 3 /hpf (0-5) 10/16/17 00:30 Urine Bacteria Few (NEG) 10/16/17 00:30 - Hospital Course Hospital Course: Ms. Marmolejo is a 67 year old female with a past medical history significant for DM II, COPD, right nephrectomy secondary to complicated nephrolithiasis, sleep apnea, atrial fibrillation who presents with LUQ/L midclavicular bottom rib pain, associated nausea, and excess flatulence. The patient states the pain comes and go, radiates from the left subcostal region to the left groin. but states it feels different that her nephrolithiasis. She does state that it is worsened with coughing, but denies posttusisive emesis. pt had a few loose stools the last couple of days. CT abd/pelv was done to r/o colitis and showed ill-defined ovoid lesion in the LLL measuring 2.7x2.6cm. CT Chest was ordered. Multifocal subsegmental infiltrates b/l but L>R likely due to infectious/ inflammatory, Less likely atypical mild pulmonary edema. The patient was also noted to be wheezing diffusely b/l. The patient had received IV antibiotics and IV steroids given the fact that she had failed PO antibiotics and PO steroids outpatient. The patient was requesting to be discharge and was agitated. On morning of discharge, the patient's wheezing had improved significantly and her O2 saturations was 100% on RA with no distress. The patient is being discharged on Levaquin, Flagyl (per GI recs), and medrol dose pack. GI recommended endoscopy/colonoscopy if symptoms don't improve. Patient will follow up with Dr. Huntley for follow up CT chest and PMD. Patient medically stable for discharge. On morning of discharge, patient has no complaints. - Date & Time of H&P Date of H&P: 10/16/17 Time of H&P: 03:53 Discharge Exam - Additional Findings Additional findings: - Constitutional Appears: Well, Non-toxic, No Acute Distress - Head Exam Head Exam: ATRAUMATIC, NORMOCEPHALIC - Eye Exam Eye Exam: EOMI, Normal appearance, PERRL - ENT Exam ENT Exam: Mucous Membranes Moist - Neck Exam Neck Exam: Normal Inspection - Respiratory Exam Respiratory Exam: Clear to Ausculation Bilateral, NORMAL BREATHING PATTERN. absent: Wheezes, Rales - Cardiovascular Exam Cardiovascular Exam: RRR, +S1, +S2. absent: JVD - GI/Abdominal Exam GI & Abdominal Exam: Soft, Normal Bowel Sounds. absent: Distended, Tenderness - Extremities Exam Extremities Exam: Full ROM, Normal Inspection. absent: Calf Tenderness, Pedal Edema - Back Exam Back Exam: NORMAL INSPECTION - Neurological Exam Neurological Exam: Alert, Awake, Oriented x3 - Psychiatric Exam Psychiatric exam: Normal Affect, Normal Mood - Skin Skin Exam: Normal Color, Warm Discharge Plan - Discharge Medications Prescriptions: Benzonatate [Tessalon Perles] 100 mg PO TID PRN #15 sgl PRN Reason: Cough levoFLOXacin [Levaquin] 750 mg PO DAILY #5 tab Methylprednisolone [Medrol Dose Pack (21 tabs)] 4 mg PO ASDIR #21 mg metroNIDAZOLE [Flagyl] 250 mg PO QID 10 Days tab - Follow Up Plan Condition: GOOD Disposition: HOME/ ROUTINE Instructions: Pertussis (DC), Community Acquired Pneumonia (DC) Additional Instructions: - please take your medications as prescribed: Levaquin once a day for 5 days, Medrol dose pack as label states, Tesslon Perles as needed - please continue your home medications - please follow up with Dr. Phelps within 1 week - please follow up with Dr. Huntley within 2 weeks - if you continue to experience fevers, chills, cough, chest pain or sob, please return to ER for evaluation Referrals: Esteban Phelps MD [Staff Provider] - Stepan Silva MD [Primary Care Provider] - Johnny Huntley MD [Staff Provider] -
== END 2017-10-17 14:05 | disposition home or self-care (01) ==
LOC: ED 23:39 → ERH 10-16 02:25 → 3RNO 10-16 04:03
PROVIDERS: ADMIT Internal Medicine; ATTEND Internal Medicine
DX: J18.9 Pneumonia, unspecified organism (principal); J44.0 Chronic obstructive pulmonary disease with (acute) lower respiratory infection; K52.9 Noninfective gastroenteritis and colitis, unspecified; E78.5 Hyperlipidemia, unspecified; I48.91 Unspecified atrial fibrillation; I12.9 Hypertensive chronic kidney disease with stage 1 through stage 4 chronic kidney disease, or unspecified chronic kidney disease; N18.9 Chronic kidney disease, unspecified; E11.22 Type 2 diabetes mellitus with diabetic chronic kidney disease; F39 Unspecified mood [affective] disorder; F17.210 Nicotine dependence, cigarettes, uncomplicated; J20.9 Acute bronchitis, unspecified; G47.30 Sleep apnea, unspecified; Z79.01 Long term (current) use of anticoagulants; K21.9 Gastro-esophageal reflux disease without esophagitis; K57.30 Diverticulosis of large intestine without perforation or abscess without bleeding; Z90.5 Acquired absence of kidney; Z87.442 Personal history of urinary calculi
CPT/HCPCS: 36415; 71010; 71250; 74176; 80053; 81001; 82150; 82550; 82803; 82948; 83615; 83690; 84145; 84484; 85025; 85610; 85730; 87086; 93005; 94640; 94760; 96365; 96374; 99285; G0378; J0696; J1170; J2270; J2405; J2920; J7040

== ENCOUNTER 2017-10-24 17:44 | Inpatient (IN) | payer BC, MEDICARE ==
--- NOTE | 2017-10-24 18:08 | ED PDOC ---
Arrival/HPI - General Time Seen by Provider: 10/24/17 17:47 Historian: Patient - History of Present Illness Narrative History of Present Illness (Text): 10/24/17 18:01 Marissa Marmolejo is a 67 year old female, former smoker, whose past medical history includes hypertension, diabetes, COPD, right nephrectomy, sleep apnea and depression, presents to the Emergency department via EMS complaining of dizziness, nausea, headache, coughing with phlegm, generalized body ache, sinus congestion, mild sore throat and subjective intermittent fever since this morning. Patient informs symptoms began this morning but worsened prior to arrival. Patient additionally informs mild abdominal pain associated with couple episodes of diarrhea since yesterday. Patient additionally informs trouble breathing secondary to COPD and cough. Patient denies any vomiting, urinary issues, sick contact, recent travels, chest pain, neck pain or any other complaints. PMD: Dr. Silva Time/Duration: 24 hours Symptom Onset: Gradual Symptom Course: Unchanged Activities at Onset: Light Context: Home Past Medical History - Provider Review Nursing Documentation Reviewed: Yes - Infectious Disease Hx of Infectious Diseases: None - Tetanus Immunization Tetanus Immunization: Unknown - Cardiac Hx Cardiac Disorders: Yes Hx Atrial Fibrillation: Yes Hx Hypertension: Yes - Pulmonary Hx Respiratory Disorders: Yes Hx Asthma: Yes Hx Bronchitis: Yes Hx Pneumonia: Yes (3 years ago) Hx Sleep Apnea: Yes (c pap) - Renal Hx Renal Disorder: Yes Hx Kidney Stones: Yes (right nephrectomy due to many large stones) - Endocrine/Metabolic Hx Endocrine Disorders: Yes Hx Diabetes Mellitus Type 2: Yes - Musculoskeletal/Rheumatological Hx Falls: No - Gastrointestinal Hx Gastrointestinal Disorders: Yes Hx Gall Bladder Disease: Yes Hx Gastroesophageal Reflux: Yes - Psychiatric Hx Psychophysiologic Disorder: Yes Hx Anxiety: Yes Hx Depression: Yes Hx Substance Use: No - Surgical History Hx Orthopedic Surgery: Yes (bilat bunionectomy) Other/Comment: right nephrectomy - Anesthesia Hx Anesthesia: Yes Hx Anesthesia Reactions: No Hx Malignant Hyperthermia: No - Suicidal Assessment Feels Threatened In Home Enviroment: No Family/Social History - Physician Review Nursing Documentation Reviewed: Yes Family/Social History: Unknown Family HX Smoking Status: y Hx Alcohol Use: No Hx Substance Use: No Hx Substance Use Treatment: No Allergies/Home Meds Allergies/Adverse Reactions: Allergies No Known Allergies Allergy (Verified 10/14/17 06:36) Home Medications: Home Meds Medication Instructions Recorded Confirmed Hyzaar 25 mg-100 mg 1 tab PO DAILY 03/03/14 10/14/17 Tricor 145 mg PO DAILY 03/03/14 10/14/17 Albuterol HFA [Ventolin HFA 90 1 puff NEB TID 05/04/14 10/14/17 mcg/actuation (8 g)] Alprazolam [Xanax] 0.25 mg PO BID PRN 05/04/14 10/14/17 Fluvastatin Sodium [Lescol] 80 mg PO DAILY 05/04/14 10/14/17 Fluticasone/Vilanterol [Breo 1 inh INH DAILY 06/26/16 10/14/17 Ellipta 100-25 Mcg INH] Liraglutide [Victoza 2-Jose] 0.8 mg SC DAILY 06/26/16 10/14/17 Tiotropium [place] Inhaler 1 inh INH DAILY 06/26/16 10/14/17 [Spiriva Inhalation Handihaler Device] predniSONE [predniSONE Tab] 40 mg PO DAILY 11/14/16 10/14/17 Apixaban [Eliquis] 5 mg PO BID 11/28/16 10/14/17 Carvedilol [Coreg] 6.25 mg PO DAILY 11/28/16 10/14/17 Escitalopram [Lexapro] 20 mg PO DAILY 11/28/16 10/14/17 Esomeprazole Magnesium [Nexium] 1 cap PO DAILY 11/28/16 10/14/17 Review of Systems - Physician Review All systems were reviewed & negative as marked: Yes - Review of Systems Constitutional: Fevers (intermittent ) Eyes: Normal ENT: Sore Throat (mild ), Sinus Congestion (mild ) Respiratory: Cough (coughing with phlegm ), Other (trouble breathing secondary to coughing ) Cardiovascular: Normal. absent: Chest Pain Gastrointestinal: Abdominal Pain (mild ), Diarrhea (since yesterday ), Nausea. absent: Vomiting Genitourinary Female: Normal. absent: Dysuria Musculoskeletal: Normal Skin: Normal Neurological: Headache (non-localized ), Dizziness, Other (lightheadedness) Endocrine: Normal Hemo/Lymphatic: Normal Psychiatric: Normal Physical Exam Vital Signs Reviewed: Yes Vital Signs Temp Pulse Resp BP Pulse Ox 10/24/17 18:02 100.3 F H 98 H 18 148/68 97 Temperature: Febrile Blood Pressure: Normal Pulse: Regular Respiratory Rate: Normal Appearance: Positive for: Well-Appearing, Non-Toxic, Comfortable Pain Distress: None Mental Status: Positive for: Alert and Oriented X 3 - Systems Exam Head: Present: Atraumatic, Normocephalic Pupils: Present: PERRL Extroacular Muscles: Present: EOMI Conjunctiva: Present: Normal Mouth: Present: Moist Mucous Membranes Neck: Present: Normal Range of Motion Respiratory/Chest: Present: Good Air Exchange, Wheezes (Bilateral wheezing ). No: Respiratory Distress, Accessory Muscle Use Cardiovascular: Present: Regular Rate and Rhythm, Normal S1, S2. No: Murmurs Abdomen: Present: Normal Bowel Sounds. No: Tenderness, Distention, Peritoneal Signs Back: Present: Normal Inspection Upper Extremity: Present: Normal Inspection. No: Cyanosis, Edema Lower Extremity: Present: Normal Inspection. No: Edema Neurological: Present: GCS=15, CN II-XII Intact, Speech Normal Skin: Present: Warm, Dry, Normal Color. No: Rashes Psychiatric: Present: Alert, Oriented x 3, Normal Insight, Normal Concentration Medical Decision Making ED Course and Treatment: 10/24/17 18:09 Impression: 67 year old female presents to the Emergency department for flu- like symptoms and trouble breathing. Differential Diagnosis included but are not limited to: viral syndrome flu vs. pneumonia vs. COPD exacerbation Plan: -- VBG -- EKG -- Labs -- Chest X-ray -- Albuterol -- Solu medrol -- Toradol -- Blood Culture -- Rapid Flu A/B Stat -- Reassess and disposition Prior Visits: Notes and results from previous visits were reviewed. On 06/26/16 patient presented to the Emergency department for asthma exacerbation and cough. Patient was referred to PCP upon improvement of symptoms. Progress Notes: EKG: Ordered, reviewed, and independently interpreted the EKG. Rate : 100 BPM Rhythm : NSR Interpretation : Occasional Premature Ventricular Contraction. No ST-segment elevations or depressions, no T-wave inversions, normal intervals. 10/24/17 18:55 Chest X-ray reviewed by radiologist, shows: IMPRESSION: Suspect slight improvement previously noted patchy ground-glass opacities seen in the upper lobes bilaterally as well as left lower lobe. 10/24/17 19:15 Patient's CXR concerning for PNA as read by radiologist. Treated with Rocephin and Azithromycin. Patient continues to wheeze despite 3 duonebs. Will continue to treat with albuterol. Patient is speaking in full sentences, improving but still having symptom. She has an elevated WBC of 18 and is not on chronic steriods. She will needs full admission for IV antibiotics. Case discussed with Dr. Phelps who will place on his service to Med/Surg. - Lab Interpretations Lab Results: 10/24/17 18:00 10/24/17 18:00 Lab Results 10/24/17 18:15: Influenza Typ A,B (EIA) Negative for flu a/b 10/24/17 18:00: PT 11.9, INR 1.09 H, APTT 32.6 10/24/17 18:00: POC Glucose (mg/dL) 115 H 10/24/17 18:00: Sodium 142, Chloride 107, Potassium 3.3 L, Carbon Dioxide 30, Anion Gap 8 L, BUN 18, Creatinine 1.2, Est GFR ( Amer) 55, Est GFR (Non- Af Amer) 45, Random Glucose 109, Calcium 9.0, Total Bilirubin 0.5, AST 35, ALT 18, Alkaline Phosphatase 56, Lactate Dehydrogenase 636, Total Creatine Kinase 100, Troponin I < 0.01, NT-Pro-B Natriuret Pep 716 H, Total Protein 6.5, Albumin 3.2, Globulin 3.3, Albumin/Globulin Ratio 1.0 L 10/24/17 18:00: pO2 34, VBG pH 7.40, VBG pCO2 46.0, VBG HCO3 28.5 H, VBG Total CO2 29.9 H, VBG O2 Sat (Calc) 79.7 H, VBG Base Excess 3.0 H, VBG Potassium 3.2 L , Sodium 142.0, Chloride 109.0 H, Glucose 109 H, Lactate 1.1, FiO2 21.0, Venous Blood Potassium 3.2 L 10/24/17 18:00: WBC 18.6 H D, RBC 3.74, Hgb 11.4 L, Hct 35.3 L, MCV 94.4, MCH 30.5, MCHC 32.3, RDW 14.7 H, Plt Count 475 H, MPV 11.0, Gran % 72.4 H, Lymph % ( Auto) 16.5 L, [place] % (Auto) 5.5, Eos % (Auto) 5.3 H, Baso % (Auto) 0.3, Gran # 13.44 H, Lymph # 3.1, [place] # 1.0 H, Eos # 1.0 H, Baso # 0.06 - RAD Interpretation Radiology Orders: 10/24/17 18:00 CHEST PORTABLE [RAD] Stat Exhaust Emissions Inspector: Radiologist - EKG Interpretation Interpreted by ED Physician: Yes Type: 12 lead EKG - Medication Orders Current Medication Orders: Acetaminophen (Tylenol 325mg Tab) 650 mg PO Q4H PRN PRN Reason: Pain, Mild (1-3) Albuterol/Ipratropium (Duoneb 3 Mg/0.5 Mg (3 Ml) Ud) 3 ml IH Q3H PRN PRN Reason: Shortness of Breath Ondansetron HCl (Zofran Inj) 4 mg IVP Q4H PRN PRN Reason: Nausea/Vomiting Discontinued Medications Acetaminophen (Tylenol 325mg Tab) 650 mg PO STAT STA Stop: 10/24/17 19:15 Last Admin: 10/24/17 19:45 Dose: Not Given Non-Admin Reason: Patient Refused Albuterol Sulfate (Albuterol 0.083% Inhal [place] (2.5 Mg/3 Ml) Ud) 2.5 mg IH STAT STA Stop: 10/24/17 19:15 Last Admin: 10/24/17 19:45 Dose: Not Given Non-Admin Reason: Patient Refused Albuterol/Ipratropium (Duoneb 3 Mg/0.5 Mg (3 Ml) Ud) 3 ml IH Q15M ALBERT Stop: 10/24/17 18:46 Last Admin: 10/24/17 18:44 Dose: 3 ml Azithromycin (Zithromax) 500 mg PO STAT STA PRN Reason: Protocol Stop: 10/24/17 18:52 Last Admin: 10/24/17 19:06 Dose: 500 mg Ceftriaxone Sodium (Rocephin 1 Gram Ivpb) 1 gm in 100 mls @ 200 mls/hr IVPB STAT STA PRN Reason: Protocol Stop: 10/24/17 19:20 Last Admin: 10/24/17 19:44 Dose: 200 mls/hr eMAR Start Stop Document 10/24/17 19:44 [email or web address] (Rec: 10/24/17 19:44 [email or web address] [id number]) Intravenous Solution Start Date 10/24/17 Start Time 19:44 End Date 10/24/17 Ketorolac Tromethamine (Toradol) 15 mg IVP STAT STA Stop: 10/24/17 18:02 Last Admin: 10/24/17 18:15 Dose: 15 mg MAR Pain Assessment Document 10/24/17 18:15 CNR (Rec: 10/24/17 18:15 CNR [id number]) Pain Reassessment Is this a pain reassessment? Yes IVP Administration Document 10/24/17 18:15 CNR (Rec: 10/24/17 18:15 CNR [id number]) Charges for Administration # of IVP Administrations 1 Methylprednisolone (Solu-Medrol) 125 mg IVP STAT STA Stop: 10/24/17 18:01 Last Admin: 10/24/17 18:15 Dose: 125 mg IVP Administration Document 10/24/17 18:15 CNR (Rec: 10/24/17 18:15 CNR [id number]) Charges for Administration # of IVP Administrations 1 Potassium Chloride (K-Dur 20 Meq Er Tab) 40 meq PO STAT STA Stop: 10/24/17 18:54 Last Admin: 10/24/17 19:07 Dose: 40 meq - Scribe Statement The provider has reviewed the documentation as recorded by the Guero Xie . All medical record entries made by the Joanaibadithya were at my direction and personally dictated by me. I have reviewed the chart and agree that the record accurately reflects my personal performance of the history, physical exam, medical decision making, and the department course for this patient. I have also personally directed, reviewed, and agree with the discharge instructions and disposition. Disposition/Present on Arrival - Present on Arrival Any Indicators Present on Arrival: No History of DVT/PE: No History of Uncontrolled Diabetes: No Urinary Catheter: No History Surgical Site Infection Following: None - Disposition Have Diagnosis and Disposition been Completed?: Yes Diagnosis: COPD (chronic obstructive pulmonary disease), CAP (community acquired pneumonia ) Disposition: HOSPITALIZED Disposition Time: 19:15 Patient Plan: Admission Condition: FAIR
[2017-10-24] MEDS: Albuterol-Ipratrop 3 mg / 0.5 (3 ml) UD IH SCH ×3 (18:15→18:44)
[2017-10-24 18:21] LABS: BASO # 0.06 K/mm3 (0.0-2.0); BASO % 0.3 % (0.0-3.0); EOS % 5.3 % (1.5-5.0); GRAN # 13.44 (1.4-6.5); GRAN % 72.4 % (50.0-68.0); HEMOGLOBIN 11.4 g/dL (12.0-16.0); LYMPH # 3.1 (1.2-3.4); LYMPH % 16.5 % (22.0-35.0); MEAN CELL VOLUME 94.4 fl (80.0-105.0); MEAN CORPUSCULAR HEMOGLOBIN 30.5 pg (25.0-35.0); MEAN CORPUSCULAR HGB CONC 32.3 g/dl (31.0-37.0); MONO % 5.5 % (1.0-6.0); RBC 3.74 10^6/uL (3.5-6.1); RED CELL DISTRIBUTION WIDTH 14.7 % (11.5-14.5); WHITE BLOOD COUNT 18.6 10^3/ul (4.5-11.0)
[2017-10-24 18:22] VITALS: BMI 31.3
[2017-10-24 18:24] LABS: VENOUS BLOOD GAS PO2 34 mm/Hg (30-55)
[2017-10-24 18:45] LABS: INR 1.09 (0.93-1.08); PARTIAL THROMBOPLASTIN TIME 32.6 Seconds (25.1-36.5); PROTHROMBIN TIME 11.9 SECONDS (9.4-12.5)
--- NOTE | 2017-10-24 18:46 | RAD ---
HISTORY: Cough. Rule out pneumonia. COMPARISON: Comparison made with chest radiograph and CT scan chest both dated 10/16/2017. 10/16/2017. FINDINGS: LUNGS: Vague patchy ground-glass opacities which were seen scattered about the upper lobes bilaterally as well as left lower lobe less well seen as compared to prior high-resolution CT chest. Changes may have improved slightly. PLEURA: No significant pleural effusion identified, no pneumothorax apparent. CARDIOVASCULAR: Heart size remains upper limits of normal/ borderline enlarged. OSSEOUS STRUCTURES: No significant abnormalities. VISUALIZED UPPER ABDOMEN: Normal. OTHER FINDINGS: None. IMPRESSION: Suspect slight improvement previously noted patchy ground-glass opacities seen in the upper lobes bilaterally as well as left lower lobe.
[2017-10-24] MEDS ORDERED: cefTRIAXone 1 gm 1 GM/100 ML BAG IVPB STA (18:51)
[2017-10-24 18:52] LABS: ALBUMIN 3.2 g/dL (3.0-4.8); ALT/SGPT 18 U/L (7-56); AST/SGOT 35 U/L (14-36); BLOOD UREA NITROGEN 18 mg/dL (7-21); GFR AFRICAN-AMERICAN 55; GFR NON-AFRICAN AMERICAN 45
[2017-10-24] MEDS ORDERED: Potassium Chloride 20 mEq ER Tab PO STA (18:53)
[2017-10-24 18:58] LABS: B-TYPE NATRIURETIC PEPTIDE 716 pg/mL (0-450); TROPONIN I < 0.01 ng/mL
[2017-10-24] MEDS ORDERED: Albuterol 0.083% Inhal Sol (2.5 mg/3 mL) UD IH STA (19:14)
[2017-10-24] MEDS ORDERED: Albuterol-Ipratrop 3 mg / 0.5 (3 ml) UD IH PRN (19:46)
--- NOTE | 2017-10-24 20:25 | CARD ---
APPROVED REPORT EKG Measurement Heart [id number] <Conclusion> Sinus rhythm with occasional premature ventricular complexes and premature atrial complexes Otherwise normal ECG
[2017-10-24 23:18] VITALS: RESP 20
[2017-10-25] MEDS ORDERED: Piperacillin/Tazobact 3.375 gm 100 ML IVPB SCH
--- NOTE | 2017-10-25 00:23 | CP.PCM.HP ---
History of Present Illness - History of Present Illness History of Present Illness: 67 year old female with a past medical history significant for DM II, COPD, right nephrectomy secondary to complicated nephrolithiasis, sleep apnea, atrial fibrillation who presents with three days of malaise, subjective fever, productive cough, and increased irritibality. She was recently hospitalized (- 10/18) for a pneumonia and an enteritis and discharged home with Levaquin, Flagyl, Medrol dose silvio, Tessalon Perlsherrill and strict follow up instructions. She reports doing well up until a day after Javier. On further questioning, she reports that given she started to feel better after discharge she in fact did not complete her antibiotics. Hence, her return to the hospital is likely her own doing. PMD: Dr. Silva PMH: DM II, Asthma/COPD, CKD, atrial fibrillation, sleep apnea PSH: Right nephrectomy, cholecystectomy Allergies: NKDA Social: 40 pack year history; denies alcohol and illicit drugs. Works for the [email or web address], lives alone Present on Admission - Present on Admission Any Indicators Present on Admission: No Review of Systems - Constitutional Constitutional: As Per HPI Past Patient History - Infectious Disease Hx of Infectious Diseases: None - Tetanus Immunizations Tetanus Immunization: Unknown - Past Medical History & Family History Past Medical History?: Yes - Past Social History Smoking Status: Former Smoker - CARDIAC Hx Cardia Arrhythmia: Yes (a-fib) Hx Hypertension: Yes - PULMONARY Hx Asthma: Yes Hx Bronchitis: Yes Hx Pneumonia: Yes (3 years ago) Hx Sleep Apnea: Yes (c pap) - RENAL Hx Kidney Stones: Yes (right nephrectomy due to many large stones) - ENDOCRINE/METABOLIC Hx Diabetes Mellitus Type 2: Yes - MUSCULOSKELETAL/RHEUMATOLOGICAL Hx Falls: No - GASTROINTESTINAL Hx Gall Bladder Disease: Yes Hx Gastroesophageal Reflux: Yes - PSYCHIATRIC Hx Anxiety: Yes Hx Depression: Yes - SURGICAL HISTORY Hx Orthopedic Surgery: Yes (bilat bunionectomy) Other/Comment: right nephrectomy - ANESTHESIA Hx Anesthesia: Yes Hx Anesthesia Reactions: No Hx Malignant Hyperthermia: No Meds Allergies/Adverse Reactions: Allergies Allergy/AdvReac Type Severity Reaction Status Date / Time No Known Allergies Allergy Verified 10/14/17 06:36 Physical Exam - Constitutional Appears: Well, Non-toxic - Head Exam Head Exam: ATRAUMATIC, NORMOCEPHALIC - Eye Exam Eye Exam: EOMI, Normal appearance - ENT Exam ENT Exam: Mucous Membranes Dry Additional comments: posterior pharynx is mildly erythematous - Neck Exam Neck exam: Positive for: Normal Inspection - Respiratory Exam Respiratory Exam: Wheezes, NORMAL BREATHING PATTERN - Cardiovascular Exam Cardiovascular Exam: RRR, +S1, +S2 - GI/Abdominal Exam GI & Abdominal Exam: Normal Bowel Sounds, Soft. absent: Guarding, Rebound - Extremities Exam Extremities exam: Positive for: normal inspection. Negative for: calf tenderness - Back Exam Back exam: NORMAL INSPECTION. absent: CVA tenderness (L), CVA tenderness (R) - Neurological Exam Neurological exam: Alert, CN II-XII Intact, Oriented x3 - Psychiatric Exam Psychiatric exam: Agitated - Skin Skin Exam: Dry, Intact, Normal Color, Warm Results - Vital Signs Recent Vital Signs: Last Vital Signs Temp 98.5 F 10/24/17 20:52 Pulse 100 H 10/24/17 20:52 Resp 20 10/24/17 20:52 BP 143/88 10/24/17 20:52 Pulse Ox 99 10/24/17 20:44 - Labs Result Diagrams: 10/24/17 18:00 10/24/17 18:00 Assessment & Plan - Assessment and Plan (Free Text) Assessment: 67 year old female with a past medical history significant for DM II, COPD, right nephrectomy secondary to complicated nephrolithiasis, sleep apnea, atrial fibrillation who presents with a COPD exacerbation and possible recurring PNA secondary to not completing her antibiotic regiment. Plan: 1) COPD exacerbation with possible recurrence of PNA secondary to not completing antibiotics - Duonebulized treatments q4h Lizzy - Solumedrol 40 mg q12h - Spiriva - Ceftriaxone and Zithromax - ID consulted, Dr. Clifford 2) Atrial fibrillation and hypertension - Carvedilol 6.25 mg PO - Eliquis 5 mg BID - Losartan 100 mg - HCTZ 25 mg 3) Dyslipidemia - Atorvastatin 20 mg DIN 4) Affective disorder - Xanax 0.5 PO BID - Lexapro 20 mg PO daily 5) Electrolyte disturbance - K was 3.3 in ED, 40 mEq given - Recheck electrolytes in AM labs, including Mg 6) DVT/ GI prophylaxis - Famotidine - SCD - Date & Time Date: 10/25/17 Time: 00:39 Decision To Admit - . Bed Request Type: Med/Surg
[2017-10-25] MEDS: Albuterol-Ipratrop 3 mg / 0.5 (3 ml) UD IH SCH ×2 (02:10→02:46)
[2017-10-25 04:25] VITALS: BP 128/78; PULSE 97; TEMP 99; O2SAT 96
[2017-10-25] MEDS ORDERED: Tiotropium 18 mcg Cap For Inhalation INH SCH (10:00)
[2017-10-25] MEDS ORDERED: Azithromycin 500MG/NS 250ml 500 MG/250 ML BAG IVPB SCH (10:00)
[2017-10-25] MEDS ORDERED: cefTRIAXone 2 GM IN NS 2 GM/100 ML BAG IVPB SCH (10:00)
[2017-10-25] MEDS ORDERED: MethylPREDNISolone 40 mg Vial IVP SCH (10:00)
[2017-10-25] MEDS ORDERED: HYZAAR PO SCH (10:00)
--- NOTE | 2017-10-25 13:42 | CP.PCM.DIS ---
<Osman Thompson - Last Filed: 10/25/17 13:38> Provider - Provider Date of Admission: 10/24/17 19:15 Attending physician: Stepan Silva MD Primary care physician: Stepan Silva MD Time Spent in preparation of Discharge (in minutes): 30 Diagnosis - Discharge Diagnosis (1) COPD (chronic obstructive pulmonary disease) Status: Acute (2) CAP (community acquired pneumonia) Status: Acute Hospital Course - Lab Results Lab Results: Most Recent Lab Values WBC 18.6 10^3/ul (4.5-11.0) H D 10/24/17 18:00 RBC 3.74 10^6/uL (3.5-6.1) 10/24/17 18:00 Hgb 11.4 g/dL (12.0-16.0) L 10/24/17 18:00 Hct 35.3 % (36.0-48.0) L 10/24/17 18:00 MCV 94.4 fl (80.0-105.0) 10/24/17 18:00 MCH 30.5 pg (25.0-35.0) 10/24/17 18:00 MCHC 32.3 g/dl (31.0-37.0) 10/24/17 18:00 RDW 14.7 % (11.5-14.5) H 10/24/17 18:00 Plt Count 475 10^3/uL (120.0-450.0) H 10/24/17 18:00 MPV 11.0 fl (7.0-11.0) 10/24/17 18:00 Gran % 72.4 % (50.0-68.0) H 10/24/17 18:00 Lymph % (Auto) 16.5 % (22.0-35.0) L 10/24/17 18:00 Floyd % (Auto) 5.5 % (1.0-6.0) 10/24/17 18:00 Eos % (Auto) 5.3 % (1.5-5.0) H 10/24/17 18:00 Baso % (Auto) 0.3 % (0.0-3.0) 10/24/17 18:00 Gran # 13.44 (1.4-6.5) H 10/24/17 18:00 Lymph # 3.1 (1.2-3.4) 10/24/17 18:00 Floyd # 1.0 (0.1-0.6) H 10/24/17 18:00 Eos # 1.0 (0.0-0.7) H 10/24/17 18:00 Baso # 0.06 K/mm3 (0.0-2.0) 10/24/17 18:00 PT 11.9 SECONDS (9.4-12.5) 10/24/17 18:00 INR 1.09 (0.93-1.08) H 10/24/17 18:00 APTT 32.6 Seconds (25.1-36.5) 10/24/17 18:00 pO2 34 mm/Hg (30-55) 10/24/17 18:00 VBG pH 7.40 (7.32-7.43) 10/24/17 18:00 VBG pCO2 46.0 (40-60) 10/24/17 18:00 VBG HCO3 28.5 mmol/l (21-28) H 10/24/17 18:00 VBG Total CO2 29.9 mmol.L (22-28) H 10/24/17 18:00 VBG O2 Sat (Calc) 79.7 % (40-65) H 10/24/17 18:00 VBG Base Excess 3.0 mmol/L (0.0-2.0) H 10/24/17 18:00 VBG Potassium 3.2 mmol/L (3.6-5.2) L 10/24/17 18:00 Sodium 142.0 mmol/L (132-148) 10/24/17 18:00 Chloride 109.0 mmol/L (98-107) H 10/24/17 18:00 Glucose 109 mg/dl (65-105) H 10/24/17 18:00 Lactate 1.1 mmol/L (0.7-2.1) 10/24/17 18:00 FiO2 21.0 % 10/24/17 18:00 Sodium 142 mmol/L (132-148) 10/24/17 18:00 Potassium 3.3 mmol/L (3.6-5.0) L 10/24/17 18:00 Chloride 107 mmol/L (98-107) 10/24/17 18:00 Carbon Dioxide 30 mmol/L (21-33) 10/24/17 18:00 Anion Gap 8 (10-20) L 10/24/17 18:00 BUN 18 mg/dL (7-21) 10/24/17 18:00 Creatinine 1.2 mg/dl (0.7-1.2) 10/24/17 18:00 Est GFR ( Amer) 55 10/24/17 18:00 Est GFR (Non-Af Amer) 45 10/24/17 18:00 POC Glucose (mg/dL) 115 mg/dL (65-110) H 10/24/17 18:00 Random Glucose 109 mg/dL (70-110) 10/24/17 18:00 Calcium 9.0 mg/dL (8.4-10.5) 10/24/17 18:00 Total Bilirubin 0.5 mg/dL (0.2-1.3) 10/24/17 18:00 AST 35 U/L (14-36) 10/24/17 18:00 ALT 18 U/L (7-56) 10/24/17 18:00 Alkaline Phosphatase 56 U/L (38-126) 10/24/17 18:00 Lactate Dehydrogenase 636 U/L (333-699) 10/24/17 18:00 Total Creatine Kinase 100 U/L (35-230) 10/24/17 18:00 Troponin I < 0.01 ng/mL 10/24/17 18:00 NT-Pro-B Natriuret Pep 716 pg/mL (0-450) H 10/24/17 18:00 Total Protein 6.5 g/dL (5.8-8.3) 10/24/17 18:00 Albumin 3.2 g/dL (3.0-4.8) 10/24/17 18:00 Globulin 3.3 gm/dL 10/24/17 18:00 Albumin/Globulin Ratio 1.0 (1.1-1.8) L 10/24/17 18:00 Venous Blood Potassium 3.2 mmol/L (3.6-5.2) L 10/24/17 18:00 Influenza Typ A,B (EIA) Negative for flu a/b (NEGATIVE) 10/24/17 18:15 - Hospital Course Hospital Course: Ms. Marmolejo is a 67 year old female with a past medical history significant for DM II, COPD, right nephrectomy secondary to complicated nephrolithiasis, sleep apnea, atrial fibrillation who presented with three days of malaise, subjective fever, productive cough, and increased irritibality. She was recently hospitalized (10/15- 10/18) for a pneumonia and an enteritis and discharged home with Levaquin, Flagyl, Medrol dose silvio, Tessalon Perles and strict follow up instructions, but did not not complete her antibiotics. Patient was transferred to the medical floors but became agitated and wanted to leave. Patient signed out AMA after being seen by night resident but before being seen by AM medical team. No History or physical exam was obtained by me or AM medical team and information above was from chart review. Discharge Exam - Additional Findings Additional findings: was not obtained Discharge Plan - Follow Up Plan Condition: FAIR Disposition: AGAINST MEDICAL ADVICE Referrals: Stepan Silva MD [Primary Care Provider] - <Donato Jacobs S - Last Filed: 10/28/17 09:26> Provider - Provider Date of Admission: 10/24/17 19:15 Attending physician: Stepan Silva MD Primary care physician: Stepan Silva MD Hospital Course - Lab Results Lab Results: Most Recent Lab Values WBC 18.6 10^3/ul (4.5-11.0) H D 10/24/17 18:00 RBC 3.74 10^6/uL (3.5-6.1) 10/24/17 18:00 Hgb 11.4 g/dL (12.0-16.0) L 10/24/17 18:00 Hct 35.3 % (36.0-48.0) L 10/24/17 18:00 MCV 94.4 fl (80.0-105.0) 10/24/17 18:00 MCH 30.5 pg (25.0-35.0) 10/24/17 18:00 MCHC 32.3 g/dl (31.0-37.0) 10/24/17 18:00 RDW 14.7 % (11.5-14.5) H 10/24/17 18:00 Plt Count 475 10^3/uL (120.0-450.0) H 10/24/17 18:00 MPV 11.0 fl (7.0-11.0) 10/24/17 18:00 Gran % 72.4 % (50.0-68.0) H 10/24/17 18:00 Lymph % (Auto) 16.5 % (22.0-35.0) L 10/24/17 18:00 Floyd % (Auto) 5.5 % (1.0-6.0) 10/24/17 18:00 Eos % (Auto) 5.3 % (1.5-5.0) H 10/24/17 18:00 Baso % (Auto) 0.3 % (0.0-3.0) 10/24/17 18:00 Gran # 13.44 (1.4-6.5) H 10/24/17 18:00 Lymph # 3.1 (1.2-3.4) 10/24/17 18:00 Floyd # 1.0 (0.1-0.6) H 10/24/17 18:00 Eos # 1.0 (0.0-0.7) H 10/24/17 18:00 Baso # 0.06 K/mm3 (0.0-2.0) 10/24/17 18:00 PT 11.9 SECONDS (9.4-12.5) 10/24/17 18:00 INR 1.09 (0.93-1.08) H 10/24/17 18:00 APTT 32.6 Seconds (25.1-36.5) 10/24/17 18:00 pO2 34 mm/Hg (30-55) 10/24/17 18:00 VBG pH 7.40 (7.32-7.43) 10/24/17 18:00 VBG pCO2 46.0 (40-60) 10/24/17 18:00 VBG HCO3 28.5 mmol/l (21-28) H 10/24/17 18:00 VBG Total CO2 29.9 mmol.L (22-28) H 10/24/17 18:00 VBG O2 Sat (Calc) 79.7 % (40-65) H 10/24/17 18:00 VBG Base Excess 3.0 mmol/L (0.0-2.0) H 10/24/17 18:00 VBG Potassium 3.2 mmol/L (3.6-5.2) L 10/24/17 18:00 Sodium 142.0 mmol/L (132-148) 10/24/17 18:00 Chloride 109.0 mmol/L (98-107) H 10/24/17 18:00 Glucose 109 mg/dl (65-105) H 10/24/17 18:00 Lactate 1.1 mmol/L (0.7-2.1) 10/24/17 18:00 FiO2 21.0 % 10/24/17 18:00 Sodium 142 mmol/L (132-148) 10/24/17 18:00 Potassium 3.3 mmol/L (3.6-5.0) L 10/24/17 18:00 Chloride 107 mmol/L (98-107) 10/24/17 18:00 Carbon Dioxide 30 mmol/L (21-33) 10/24/17 18:00 Anion Gap 8 (10-20) L 10/24/17 18:00 BUN 18 mg/dL (7-21) 10/24/17 18:00 Creatinine 1.2 mg/dl (0.7-1.2) 10/24/17 18:00 Est GFR ( Amer) 55 10/24/17 18:00 Est GFR (Non-Af Amer) 45 10/24/17 18:00 POC Glucose (mg/dL) 115 mg/dL (65-110) H 10/24/17 18:00 Random Glucose 109 mg/dL (70-110) 10/24/17 18:00 Calcium 9.0 mg/dL (8.4-10.5) 10/24/17 18:00 Total Bilirubin 0.5 mg/dL (0.2-1.3) 10/24/17 18:00 AST 35 U/L (14-36) 10/24/17 18:00 ALT 18 U/L (7-56) 10/24/17 18:00 Alkaline Phosphatase 56 U/L (38-126) 10/24/17 18:00 Lactate Dehydrogenase 636 U/L (333-699) 10/24/17 18:00 Total Creatine Kinase 100 U/L (35-230) 10/24/17 18:00 Troponin I < 0.01 ng/mL 10/24/17 18:00 NT-Pro-B Natriuret Pep 716 pg/mL (0-450) H 10/24/17 18:00 Total Protein 6.5 g/dL (5.8-8.3) 10/24/17 18:00 Albumin 3.2 g/dL (3.0-4.8) 10/24/17 18:00 Globulin 3.3 gm/dL 10/24/17 18:00 Albumin/Globulin Ratio 1.0 (1.1-1.8) L 10/24/17 18:00 Venous Blood Potassium 3.2 mmol/L (3.6-5.2) L 10/24/17 18:00 Influenza Typ A,B (EIA) Negative for flu a/b (NEGATIVE) 10/24/17 18:15 - Hospital Course Hospital Course: discussed w/ resident at length went over meds labs orders plans consults reviewed
== END 2017-10-25 07:29 | disposition left against medical advice (07) | DRG 190 ==
LOC: ED 17:44 → ERH 19:15 → 5RNO 20:49
PROVIDERS: ADMIT Internal Medicine; ATTEND Internal Medicine
DX: J44.1 Chronic obstructive pulmonary disease with (acute) exacerbation (principal); J18.9 Pneumonia, unspecified organism; I48.91 Unspecified atrial fibrillation; J44.0 Chronic obstructive pulmonary disease with (acute) lower respiratory infection; I10 Essential (primary) hypertension; G47.30 Sleep apnea, unspecified; E11.9 Type 2 diabetes mellitus without complications; K21.9 Gastro-esophageal reflux disease without esophagitis; Z79.01 Long term (current) use of anticoagulants; Z79.899 Other long term (current) drug therapy; Z87.01 Personal history of pneumonia (recurrent); Z87.442 Personal history of urinary calculi; Z87.891 Personal history of nicotine dependence

== ENCOUNTER 2018-01-13 10:47 | Emergency (ER) | payer BC ==
[2018-01-13 11:11] VITALS: BMI 29.7
[2018-01-13 11:19] VITALS: BP 141/68; PULSE 76; RESP 18; TEMP 99; O2SAT 97
== END 2018-01-13 11:57 | disposition left against medical advice (07) ==
LOC: ED 10:47
DX: Z02.89 Encounter for other administrative examinations (principal); R50.9 Fever, unspecified

== ENCOUNTER 2018-02-02 11:33 | Inpatient (IN) | payer BC, MEDICARE ==
[2018-02-02] MEDS ORDERED: Sodium Chloride 0.9% 500 ML IV STA (11:45)
[2018-02-02 11:46] VITALS: BMI 27.7
--- NOTE | 2018-02-02 12:01 | ED PDOC ---
Arrival/HPI - General Time Seen by Provider: 02/02/18 11:38 Historian: Patient - History of Present Illness Narrative History of Present Illness (Text): 02/02/18 11:49 A 67 year old female presents to the emergency department complaining of dizziness today. Patient reports she woke up this morning with dizziness which she describes as a spinning sensation. (Last known well time: last night). Patient reports not feeling well over the past 4 days. She notes non-productive cough and rhinorrhea. Patient also notes feeling anxious but denies any fever, chills, nausea, vomiting, abdominal pain, chest pain, shortness of breath, headache, ear pain or any other complaints. She reports not taking her Xanax at home. Time/Duration: Other (dizziness x ths morning) Symptom Course: Unchanged Context: Home Past Medical History - Provider Review Nursing Documentation Reviewed: Yes - Infectious Disease Hx of Infectious Diseases: None - Tetanus Immunization Tetanus Immunization: Unknown - Cardiac Hx Cardiac Arrhythmia: Yes (a-fib) Hx Hypertension: Yes - Pulmonary Hx Asthma: Yes Hx Bronchitis: Yes Hx Pneumonia: Yes (3 years ago) Hx Sleep Apnea: Yes (c pap) - Renal Hx Kidney Stones: Yes (right nephrectomy due to many large stones) - Endocrine/Metabolic Hx Diabetes Mellitus Type 2: Yes - Musculoskeletal/Rheumatological Hx Falls: No - Gastrointestinal Hx Gall Bladder Disease: Yes Hx Gastroesophageal Reflux: Yes - Psychiatric Hx Anxiety: Yes Hx Depression: Yes Hx Substance Use: No - Surgical History Hx Orthopedic Surgery: Yes (bilat bunionectomy) Other/Comment: right nephrectomy - Anesthesia Hx Anesthesia: Yes Hx Anesthesia Reactions: No Hx Malignant Hyperthermia: No - Suicidal Assessment Feels Threatened In Home Enviroment: No Family/Social History - Physician Review Nursing Documentation Reviewed: Yes Family/Social History: No Known Family HX Smoking Status: Former Smoker Hx Alcohol Use: No Hx Substance Use: No Hx Substance Use Treatment: No Allergies/Home Meds Allergies/Adverse Reactions: Allergies No Known Allergies Allergy (Verified 01/13/18 11:21) Home Medications: Home Meds Medication Instructions Recorded Confirmed Hyzaar 25 mg-100 mg 1 tab PO DAILY 03/03/14 02/02/18 Tricor 145 mg PO DAILY 03/03/14 02/02/18 Albuterol HFA [Ventolin HFA 90 1 puff NEB TID 05/04/14 02/02/18 mcg/actuation (8 g)] Alprazolam [Xanax] 0.25 mg PO BID PRN 05/04/14 02/02/18 Fluvastatin Sodium [Lescol] 80 mg PO DAILY 05/04/14 02/02/18 Fluticasone/Vilanterol [Breo 1 inh INH DAILY 06/26/16 02/02/18 Ellipta 100-25 Mcg INH] Tiotropium [place]undy Inhaler 1 inh INH DAILY 06/26/16 02/02/18 [Spiriva Inhalation Handihaler Device] Esomeprazole Magnesium [Nexium] 1 cap PO DAILY 11/28/16 02/02/18 Glimepiride [Amaryl] 4 mg PO DAILY 02/02/18 02/02/18 Losartan [Cozaar] 50 mg PO DAILY 02/02/18 02/02/18 Meclizine [Antivert] 25 mg PO DAILY 02/02/18 02/02/18 Montelukast [Singulair] 10 mg PO DAILY 02/02/18 02/02/18 Review of Systems - Physician Review All systems were reviewed & negative as marked: Yes - Review of Systems Constitutional: absent: Fevers, Night Sweats Eyes: absent: Eye Pain ENT: Rhinorrhea Respiratory: Cough. absent: SOB, Sputum Cardiovascular: absent: Chest Pain Gastrointestinal: absent: Abdominal Pain, Nausea, Vomiting Neurological: Dizziness. absent: Headache Psychiatric: Anxiety Physical Exam Vital Signs Reviewed: Yes Vital Signs Temp Pulse Resp BP Pulse Ox 02/02/18 11:40 98.4 F 88 18 128/73 96 Temperature: Afebrile Blood Pressure: Normal Pulse: Regular Respiratory Rate: Normal Appearance: Positive for: Well-Appearing, Non-Toxic, Comfortable Pain Distress: None Mental Status: Positive for: Alert and Oriented X 3 - Systems Exam Head: Present: Atraumatic, Normocephalic Pupils: Present: PERRL Extroacular Muscles: Present: EOMI Conjunctiva: Present: Normal Ears: Present: NORMAL TM (Normal right TM), Other (Left TM impacted with cerumen ) Mouth: Present: Moist Mucous Membranes Pharnyx: Present: Normal. No: ERYTHEMA, EXUDATE, TONSILS ENLARGED Neck: Present: Normal Range of Motion Respiratory/Chest: Present: Clear to Auscultation, Good Air Exchange. No: Respiratory Distress, Accessory Muscle Use Cardiovascular: Present: Normal S1, S2, Irregular Rhythm. No: Murmurs Abdomen: No: Tenderness, Distention, Peritoneal Signs Back: Present: Normal Inspection Upper Extremity: Present: Normal Inspection. No: Cyanosis, Edema Lower Extremity: Present: Normal Inspection. No: Edema Neurological: Present: GCS=15, CN II-XII Intact, Speech Normal. No: Gait Normal Skin: Present: Warm, Dry, Normal Color. No: Rashes Psychiatric: Present: Alert, Oriented x 3, Normal Insight, Normal Concentration Medical Decision Making ED Course and Treatment: 02/02/18 11:49 Impression: A 67 year old female with dizziness today. Patient notes non-productive cough and rhinorrhea x 4 days. Patient also reports anxiety, she states she did not take Xanax and is requesting home medication. Plan: -- Head CT -- Chest xray -- EKG -- Labs -- Xanax, Aspirin, Meclizine and IV fluids -- Reassess and disposition Progress Notes: Report Date : 02/02/2018 12:43:14 Procedure: Chest xray Dictator : Gagandeep Caicedo MD IMPRESSION: No active disease. Report Date : 02/02/2018 12:58:46 PROCEDURE: CT HEAD WITHOUT CONTRAST. Dictator : Gagandeep Caicedo MD IMPRESSION: No acute findings 02/02/18 13:11 Patient continues to be unable to ambulate due to dizziness. Otherwise neurologically intact. EKG shows sinus tachycardia with pvcs. Chart shows prior hx of afib, but cannot find any ekgs to support this and patient denies history. Case discussed with Dr. Ling, who accepts admission to her service. Requesting ENT consult for impacted ear wax. Concerned there is some component of COPD due to uri complaint, and requesting blood and urine culture with ceftriaxone and azithromycin. Will place additional orders after her evaluation. 02/02/18 13:21 - Lab Interpretations Lab Results: 02/02/18 11:50 02/02/18 11:50 Lab Results 02/02/18 11:50: Sodium 144, Potassium 3.6, Chloride 106, Carbon Dioxide 26, Anion Gap 15, BUN 26 H, Creatinine 1.4 H, Est GFR ( Amer) 46, Est GFR ( Non-Af Amer) 38, Random Glucose 113 H, Calcium 10.3, Total Bilirubin 0.5, AST 23 , ALT 28, Alkaline Phosphatase 56, Total Creatine Kinase 80, Troponin I < 0.01, NT-Pro-B Natriuret Pep 102, Total Protein 7.3, Albumin 3.8, Globulin 3.5, Albumin/Globulin Ratio 1.1 02/02/18 11:50: PT 11.8, INR 1.03, APTT 31.2 02/02/18 11:50: WBC 14.1 H D, RBC 4.87, Hgb 14.7 D, Hct 44.8, MCV 92.0, MCH 30.2, MCHC 32.8, RDW 13.4, Plt Count 497 H, MPV 10.9, Gran % 68.2 H, Lymph % ( Auto) 20.9 L, [place] % (Auto) 5.9, Eos % (Auto) 4.3, Baso % (Auto) 0.7, Gran # 9.63 H, Lymph # (Auto) 3.0, [place] # (Auto) 0.8 H, Eos # (Auto) 0.6, Baso # (Auto ) 0.10 I have reviewed the lab results: Yes - RAD Interpretation Radiology Orders: 02/02/18 11:43 HEAD W/O CONTRAST [CT] Stat CHEST PORTABLE [RAD] Stat - Medication Orders Current Medication Orders: Azithromycin (Zithromax 500mg In Ns) 500 mg in 250 mls @ 167 mls/hr IVPB STAT STA PRN Reason: Protocol Stop: 02/02/18 14:40 Ceftriaxone Sodium (Rocephin 1 Gram Ivpb) 1 gm in 100 mls @ 200 mls/hr IVPB STAT STA Stop: 02/02/18 13:43 Discontinued Medications Alprazolam (Xanax) 0.25 mg PO STAT STA PRN Reason: Protocol Stop: 02/02/18 11:49 Last Admin: 02/02/18 12:09 Dose: 0.25 mg Aspirin (Aspirin Chewable) 324 mg PO STAT STA Stop: 02/02/18 11:49 Last Admin: 02/02/18 12:08 Dose: 324 mg Sodium Chloride (Sodium Chloride 0.9%) 500 mls @ 999 mls/hr IV .Q31M STA Stop: 02/02/18 12:15 Last Admin: 02/02/18 12:11 Dose: 999 mls/hr eMAR Start Stop Document 02/02/18 12:11 [facility] (Rec: 02/02/18 12:12 [facility] [id number]) Intravenous Solution Start Date 02/02/18 Start Time 12:11 End Date 02/02/18 End time 12:41 Total Infusion Time 30 Meclizine HCl (Antivert) 50 mg PO STAT STA Stop: 02/02/18 11:51 Last Admin: 02/02/18 12:09 Dose: 50 mg Ondansetron HCl (Zofran Inj) 4 mg IVP STAT STA Stop: 02/02/18 13:11 NIHSS Scale ([facility]) Time Performed: 13:24 - How Severe is the Stoke Baseline Level of Consciousness: 0=Alert LOC to Questions: 0=Both comments correct LOC to commands: 0=Obeys both correctly Visual: 0=No visual loss Facial: 0=Normal Motor Arm - Left: 0=No drift Motor Arm - Right: 0=No drift Motor Leg - Left: 0=No drift Motor Leg - Right: 0=No drift Limb Ataxia: 0=Absent Sensory: 0=Normal Best Language: 0=No aphasia Dysarthia: 0=Normal articulation Extinction & Inattention (Neglect): 0=Normal, no object rTPA Inclusion/Exclusion - Refusal of Treatment Patient Refused Treatment: No - Inclusion Criteria for Altepase Patient is 18 years or Older: Yes The Clinical Diagnosis of Ischemic Stroke That is Causing a Potentially Disabling Neurological Deficit: No Time of Onset is Well Established to be Less Than 270 Minute Before Treatment Would Begin: No Risk/Benefit Discussed With Patient/Family Member Present: No - Scribe Statement The provider has reviewed the documentation as recorded by the Scribe Helen Joyce Provider Scribe Attestation: All medical record entries made by the Scribe were at my direction and personally dictated by me. I have reviewed the chart and agree that the record accurately reflects my personal performance of the history, physical exam, medical decision making, and the department course for this patient. I have also personally directed, reviewed, and agree with the discharge instructions and disposition. Disposition/Present on Arrival - Present on Arrival Any Indicators Present on Arrival: No History of DVT/PE: No History of Uncontrolled Diabetes: No Urinary Catheter: No History Surgical Site Infection Following: None - Disposition Have Diagnosis and Disposition been Completed?: Yes Diagnosis: COPD exacerbation, Dizziness, Impacted cerumen of left ear Disposition: HOSPITALIZED Disposition Time: 13:26 Patient Plan: Admission Condition: FAIR
[2018-02-02 12:31] LABS: BASO # 0.1 K/mm3 (0.0-2.0); BASO % 0.7 % (0.0-3.0); EOS # 0.6 (0.0-0.7); EOS % 4.3 % (1.5-5.0); GRAN # 9.63 (1.4-6.5); GRAN % 68.2 % (50.0-68.0); HEMOGLOBIN 14.7 g/dL (12.0-16.0); LYMPH % 20.9 % (22.0-35.0); MEAN CORPUSCULAR HEMOGLOBIN 30.2 pg (25.0-35.0); MEAN CORPUSCULAR HGB CONC 32.8 g/dl (31.0-37.0); MEAN PLATELET VOLUME 10.9 fl (7.0-11.0); MONO # 0.8 (0.1-0.6); MONO % 5.9 % (1.0-6.0); RBC 4.87 10^6/uL (3.5-6.1); RED CELL DISTRIBUTION WIDTH 13.4 % (11.5-14.5); WHITE BLOOD COUNT 14.1 10^3/ul (4.5-11.0)
[2018-02-02 12:36] LABS: ALB/GLOB RATIO 1.1 (1.1-1.8); ALBUMIN 3.8 g/dL (3.0-4.8); ALT/SGPT 28 U/L (7-56); AST/SGOT 23 U/L (14-36); BLOOD UREA NITROGEN 26 mg/dL (7-21); CALCIUM 10.3 mg/dL (8.4-10.5); GFR AFRICAN-AMERICAN 46; GFR NON-AFRICAN AMERICAN 38
[2018-02-02 12:37] LABS: INR 1.03 (0.93-1.08); PARTIAL THROMBOPLASTIN TIME 31.2 Seconds (25.1-36.5); PROTHROMBIN TIME 11.8 SECONDS (9.4-12.5)
--- NOTE | 2018-02-02 12:45 | RAD ---
HISTORY: dizziness COMPARISON: 11/19/2017 FINDINGS: LUNGS: No active pulmonary disease. PLEURA: No significant pleural effusion identified, no pneumothorax apparent. CARDIOVASCULAR: Normal. OSSEOUS STRUCTURES: No significant abnormalities. VISUALIZED UPPER ABDOMEN: Normal. OTHER FINDINGS: None. IMPRESSION: No active disease.
[2018-02-02 12:48] LABS: B-TYPE NATRIURETIC PEPTIDE 102 pg/mL (0-450); TROPONIN I < 0.01 ng/mL
--- NOTE | 2018-02-02 13:00 | CT ---
PROCEDURE: CT HEAD WITHOUT CONTRAST. HISTORY: dizziness COMPARISON: None available. TECHNIQUE: Axial computed tomography images were obtained through the head/brain without intravenous contrast. Radiation dose: Total exam DLP = 831 mGy-cm. This CT exam was performed using one or more of the following dose reduction techniques: Automated exposure control, adjustment of the mA and/or kV according to patient size, and/or use of iterative reconstruction technique. FINDINGS: HEMORRHAGE: No intracranial hemorrhage. BRAIN: No mass effect or edema. No atrophy or chronic microvascular ischemic changes. VENTRICLES: Unremarkable. No hydrocephalus. CALVARIUM: Unremarkable. PARANASAL SINUSES: Unremarkable as visualized. No significant inflammatory changes. MASTOID AIR CELLS: Unremarkable as visualized. No inflammatory changes. OTHER FINDINGS: None. IMPRESSION: No acute findings
[2018-02-02] MEDS ORDERED: cefTRIAXone (Rocephin) 1 gm Inj IVPB STA (13:11)
[2018-02-02] MEDS ORDERED: Azithromycin 500MG/NS 250ml 500 MG/250 ML BAG IVPB STA (13:11)
[2018-02-02] MEDS ORDERED: cefTRIAXone 1 GM/100 ML BAG IVPB STA (13:14)
[2018-02-02 15:13] LABS: URINE BILIRUBIN NEGATIVE (NEGATIVE); URINE BLOOD NEGATIVE (NEGATIVE); URINE GLUCOSE (UA) NEGATIVE (NEGATIVE); URINE LEUKOCYTE ESTERASE SMALL Leu/uL (NEGATIVE); URINE PROTEIN NEGATIVE mg/dL (<30 mg/dL); URINE UROBILINOGEN 0.2 E.U./dL (<1 E.U./dL)
[2018-02-02 15:17] LABS: URINE APPEARANCE CLEAR (CLEAR); URINE COLOR YELLOW (YELLOW)
[2018-02-02 15:27] LABS: URINE AMORPHOUS SEDIMENT FEW; URINE BACTERIA MOD (NEG); URINE RBC 0 - 2 /hpf (0-2)
[2018-02-02] MEDS ORDERED: Pneumococcal 23-Valent Vaccine IM ONE (18:04)
[2018-02-02] MEDS ORDERED: guaiFENesin DM 100 mg-10 mg/5 ml UD PO PRN (19:36)
[2018-02-02] MEDS: Arformoterol 15 mcg/2 ml Inh Sol IH SCH (20:00)
[2018-02-02] MEDS ORDERED: Arformoterol 15 mcg/2 ml Inh Sol IH SCH (20:00)
[2018-02-02] MEDS: Budesonide 0.25 mg/2 ml Inhal Susp UD IH SCH (20:00)
[2018-02-02] MEDS: Insulin Reg-LOW-Coverage SC SCH (22:00)
--- NOTE | 2018-02-03 02:14 | HP ---
DATE OF EXAM: 02/02/2018 REASON FOR ADMISSION: Exacerbation of chronic obstructive pulmonary disease, vertigo, positive influenza A serology. HISTORY OF PRESENT ILLNESS: This 67-year-old female presented to [facility] ER earlier this afternoon. I examined the patient in the emergency room at the [facility] early this evening. She presented with complaints of dizziness, vertiginous in nature. She stated that for the past 3 to 4 days, she has had a productive cough and rhinorrhea. In the emergency room, she was noted to have influenza A positive serology, clinical evidence of exacerbation of chronic obstructive pulmonary disease as well as left ear canal impacted with cerumen. This patient is admitted for treatment and evaluation of the above. Of note, she was also noted to have leukocytosis with a white blood cell count of 14,100. PAST MEDICAL HISTORY: Extensive and includes longstanding anxiety neurosis, non-insulin dependent diabetes mellitus, asthmatic bronchitis, chronic hypertension, chronic renal insufficiency stage III, peptic ulcer disease with GERD, hyperlipidemia, and COPD. ALLERGIES: THE PATIENT STATES SHE HAS NO KNOWN ALLERGIES TO ANY MEDICATION. SOCIAL HISTORY: She is a persistent cigarette smoker, smoking approximately 10 cigarettes per day. 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 OUTPATIENT MEDICATIONS: Included Amaryl, Singulair, Cozaar, ProAir inhaler, Xanax, Lipitor, and Tricor. FAMILY HISTORY: Noncontributory. REVIEW OF SYSTEMS: HEAD: As per HPI. No knowledge of stroke or seizure. EYE: No change in visual acuity. EAR: Left ear wax. THROAT: No swallowing difficulty. NECK: No stiffness. CARDIAC: She has a history of chronic hypertension. PULMONARY: Chronic obstructive pulmonary disease in the setting of persistent cigarette smoking. GASTROINTESTINAL: GERD. GENITOURINARY: Chronic renal insufficiency. She is status post a nephrectomy and has a history of chronic renal cysts. MUSCULOSKELETAL: Degenerative arthritis. ENDOCRINE: Hyperlipidemia, non-insulin dependent diabetes mellitus. VASCULAR: No claudication. SKIN: No ulcers. No rash. 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 HEENT: Head: Normocephalic, atraumatic. Eyes: No icterus. Ears: Left ear wax. NECK: Supple. HEART: S1, S2. LUNGS: With rhonchi and occasional expiratory wheezing. HEART: S1, S2. No pathological rubs, murmurs, or gallops. ABDOMEN: Obese, nontender. No palpable organomegaly. EXTREMITIES: No clubbing, no cyanosis, no edema. SKIN: Without rash. NEUROLOGICAL: Grossly intact. PSYCHOLOGICAL: Chronic anxiety. VASCULAR: Legs warm to touch. LABORATORY DATA: White count 14,100, hemoglobin 14.7, hematocrit 44.8, platelets 197,000; granulocytes 68.2%; PT/INR 1.03, PTT 31.2. Sodium 144, K 3.6, chloride 106, bicarb 26, BUN 26, creatinine 1.4. Estimated GFR 38 mL/minute. Random blood sugar 113. Bilirubin 0.5, AST 23, ALT 28, alk phos 56. Troponin less than 0.01. Total CPK low at 80. Urinalysis: Moderate bacteria, no protein. Influenza serology: Positive for influenza A. Chest x-ray: Was reviewed, no active infiltrates, no pneumothorax, no effusion. Head CT was reviewed, no acute findings, no infarct, no hemorrhage. EKG reportedly showed a normal sinus rhythm with nonspecific ST-T wave changes. IMPRESSION: This is a 67-year-old female with acute vertigo in the setting of a left impacted eardrum with wax and acute influenza A, chronic obstructive pulmonary disease acute exacerbation, chronic hypertension, type 2 diabetes mellitus, hyperlipidemia, peptic ulcer disease with gastroesophageal reflux disease, history of chronic asthma, degenerative arthritis. PLAN: As discussed with the patient, nursing, emergency room physician, and cardiac unit nursing will be to admit this patient to the cardiac unit where she is ordered to have physical therapy for conditioning and ambulation safety. She will be placed on respiratory isolation, but will have bathroom privileges and a heart-healthy diabetic renal diet. She is ordered to do incentive spirometry and having oxygen by nasal cannula 2 liters p.r.n. I have ordered Zofran 4 mg IV every 6 hours p.r.n. nausea and vomiting. She will receive Zithromax 500 mg IV every 24, Xopenex inhalational therapy 0.63 t.i.d., Xanax 0.25 mg p.o. b.i.d., Tylenol 650 p.o. every 6 hours p.r.n. pain or temperature greater than 101, Tricor 145 mg p.o. daily, Tamiflu dose reduced for renal insufficiency at 30 mg p.o. b.i.d. for 5 days, Singulair 10 mg p.o. daily, Rocephin 1 g IV every 24, Robitussin DM 5 mL p.o. every 6 hours p.r.n. cough, Brovana inhalational therapy every 12, Pulmicort inhalational therapy every 12, Pepcid 20 mg p.o. at bedtime, Lipitor 80 mg p.o. at dinner time, regular low-dose insulin protocol a.c. meals and at bedtime, Cozaar 50 mg p.o. daily, and meclizine 12.5 mg p.o. b.i.d. She has an order for blood and urine cultures, a repeat CBC and basic metabolic panel for the a.m., a fasting lipid panel for the a.m., and she will have hemoglobin A1c levels as well as T4 levels, B12 and folic acid levels done now. There is a consultation placed with Dr. Gaffney from ear, nose, and throat regarding her impacted left ear wax removal and patient will be monitored regarding her clinical response to the above interventions. Greater than 75 minutes was spent in the care management, review of x-rays, labs, and ordering of medication and discussion of this patient's care today. All questions were answered. Abbi Ling MD MTDD
[2018-02-03 06:52] LABS: HEMOGLOBIN 12.6 g/dL (12.0-16.0); MEAN CELL VOLUME 92.1 fl (80.0-105.0); MEAN CORPUSCULAR HEMOGLOBIN 29.4 pg (25.0-35.0); RBC 4.28 10^6/uL (3.5-6.1); RED CELL DISTRIBUTION WIDTH 13.6 % (11.5-14.5); WHITE BLOOD COUNT 10.1 10^3/ul (4.5-11.0)
[2018-02-03 07:00] LABS: CALCIUM 9.8 mg/dL (8.4-10.5)
[2018-02-03] MEDS: Insulin Reg-LOW-Coverage SC SCH ×4 (07:41→21:16)
[2018-02-03] MEDS: Levalbuterol 0.63 MG/3 ML Inhal Soln UD IH SCH ×3 (07:59→19:41)
[2018-02-03] MEDS: Budesonide 0.25 mg/2 ml Inhal Susp UD IH SCH ×2 (07:59→19:41)
[2018-02-03] MEDS: Arformoterol 15 mcg/2 ml Inh Sol IH SCH ×2 (07:59→19:41)
[2018-02-03] MEDS ORDERED: Sodium Chloride 0.45% 1,000 ML IV SCH (09:30)
[2018-02-03] MEDS: cefTRIAXone 1 gm 1 GM/100 ML BAG IVPB SCH (09:39)
[2018-02-03] MEDS ORDERED: Azithromycin 500MG/NS 250ml 500 MG/250 ML BAG IVPB SCH (10:00)
--- NOTE | 2018-02-03 10:06 | CARD ---
APPROVED REPORT EKG Measurement Heart [id number] <Conclusion> Sinus tachycardia with premature supraventricular complexes Left axis deviation NSSTW changes Prolonged QTc
[2018-02-03 12:23] LABS: FOLATE 9.4 ng/mL
--- NOTE | 2018-02-03 14:55 | PN ---
DATE: 02/03/2018 SUBJECTIVE: This 67-year-old female was examined at her bedside and her case was reviewed with her nurse, Alvina Suarez, registered nurse. The patient was admitted with exacerbation of chronic obstructive pulmonary disease, productive cough, rhinorrhea and influenza positive serology for influenza A. She remains in respiratory isolation. She remains highly anxious and is being medicated with Xanax. The patient denies any active fever, chills, chest pain or shortness of breath. PHYSICAL EXAMINATION: VITAL SIGNS: On physical exam at the present time remains in a normal sinus rhythm with a temperature of 98, respirations 18, pulse 72 and blood pressure 125/71. Pulse ox 97%. HEENT: Head normocephalic, atraumatic. Eyes: No icterus. Ears: Left ear impacted with wax. Throat: Injected. NECK: Supple. HEART: Regular S1, S2. LUNGS: With rhonchi and wheezing on auscultatory exam. ABDOMEN: Soft, nontender. No palpable organomegaly. No rebound. No guarding. No tenderness. EXTREMITIES: No clubbing, no cyanosis, no edema. SKIN: Without rash. NEUROLOGICAL: Grossly intact. PSYCHOLOGICAL: Anxiety neurosis. VASCULAR: Legs warm to touch. SKIN: No rash. LABORATORY DATA: White count 10,100, hemoglobin 12.6, hematocrit 39.4, platelets 416,000. PT/INR 1.03, PTT 31.2. Sodium 142, K 3.8, chloride 108, bicarb 26, BUN 24, creatinine 1.3, random blood sugar 87. Cholesterol 121, triglycerides 114, LDL 53, HDL 38. T4 normal 8.9. Urinalysis showed moderate bacteria. Influenza A serology is positive. Head CT was reviewed, it showed no evidence of hemorrhage or stroke. Chest x-ray was consistent with chronic obstructive pulmonary disease. No pneumothorax, no pleural effusion. EKG was reviewed. It showed a sinus tachycardia with nonspecific ST-T wave changes. IMPRESSION: A 67-year-old female, admitted with vertigo; left ear canal was impacted, cerumen wax; exacerbation of chronic obstructive pulmonary disease; acute influenza A, type 2 diabetes mellitus; hyperlipidemia; peptic ulcer disease with gastroesophageal reflux disease; chronic asthma; hyperlipidemia; anxiety neurosis; degenerative arthritis. PLAN: The plan as discussed with the patient, nursing, case management will be to continue Antivert 12.5 mg p.o. b.i.d., Brovana inhalational therapy every 12, Cozaar 50 mg p.o. daily, regular low-dose Humulin insulin coverage before meals and at bedtime, Lipitor 80 mg p.o. at dinner time, Pepcid 20 mg p.o. at bedtime, Pulmicort inhalational therapy every 12, Robitussin DM 5 mL p.o. every 4 hours p.r.n. cough, Rocephin 1 g IV every 24, Singulair 10 mg p.o. daily, 0.45 saline at 70 mL/hour, Tamiflu 30 mg p.o. b.i.d., Tricor 145 mg p.o. daily, Xanax 0.25 mg p.o. b.i.d., Xopenex inhalational therapy 0.63 mg every 12 hours, Zithromax 500 mg IV every 24. The patient remains in respiratory isolation. She is encouraged to do incentive spirometry every 1 hour and has an order for nasal O2, 2 L p.r.n. She continues on a heart-healthy soft bland diabetic diet. She has bathroom privileges. She will have a repeat basic metabolic panel in the a.m. and all of the above was discussed in detail with the patient, nursing in the cardiac unit. Greater than 35 minutes was spent in the care and management, review of x-rays, labs and ordering of medication and testing for this patient today. All questions were answered. Abbi Ling MD MTDD
[2018-02-03 18:02] VITALS: RESP 20; TEMP 98.5; O2SAT 98
--- NOTE | 2018-02-03 21:38 | PCM.PROC ---
Procedures Attestation:: I certify that I have explained the specified Operation(s) or Procedure(s), risks, benefits and reasonable alternatives to the Patient and/or other person responsible. The opportunity was given to ask questions and all questions answered - Ear Wax Removal Both Ears Result: Re-examined: cerumen removed completely TM Examination: TM(s) intact, normal appearance Ear Canal Exam: atraumatic Patient Tolerated Procedure: well, no complications Complications: no problems Technique: ear canal curetted Additional comments: Done with otoscope
[2018-02-04 07:11] LABS: CALCIUM 9.5 mg/dL (8.4-10.5)
[2018-02-04] MEDS: Insulin Reg-LOW-Coverage SC SCH ×2 (07:56→11:30)
[2018-02-04] MEDS: Levalbuterol 0.63 MG/3 ML Inhal Soln UD IH SCH ×2 (08:15→13:17)
[2018-02-04] MEDS: Arformoterol 15 mcg/2 ml Inh Sol IH SCH (08:15)
[2018-02-04] MEDS: Budesonide 0.25 mg/2 ml Inhal Susp UD IH SCH (08:15)
[2018-02-04] MEDS: cefTRIAXone 1 gm 1 GM/100 ML BAG IVPB SCH (10:15)
[2018-02-04 10:23] VITALS: BP 142/84; PULSE 72
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
--- NOTE | 2018-02-04 22:55 | DS ---
DATE OF EVALUATION; 02/04/2018 FINAL DIAGNOSES: Exacerbation of chronic obstructive pulmonary disease, extended-spectrum beta-lactamase Escherichia coli urinary tract infection, positive influenza A, wir-glbqten-hqbrobtvq diabetes mellitus, chronic asthma, vertigo, impacted left ear wax removed, chronic hypertension, chronic renal insuffiency stage 3, history of nephrectomy,peptic ulcer disease with gastroesophageal reflux disease, chronic anxiety neurosis, hyperlipidemia. The patient left AMA. DISCHARGE MEDICATIONS: The patient was advised to continue Amaryl 4 mg p.o. daily, Singulair 10 mg p.o. daily, Antivert 25 mg p.o. daily p.r.n. vertigo, Cozaar 50 mg p.o. daily, Ventolin inhaler 1 puff every 4 hours p.r.n., Xanax 0.25 mg b.i.d. p.r.n., Lipitor 40 mg p.o. daily, Tricor 145 mg p.o. daily. The patient was given a prescription for Tamiflu 30 mg p.o. b.i.d. #5, no refills. The patient had left ear wax removed by ENT. CONSULTANTS: The patient was seen by Dr. Ware from infectious disease prior to discharge and reportedly received 100 mg of gentamicin x1 dose for microbiology positive E-coli ESBL sensitive to gentamicin as per his recommendation. SUMMARY: This 67-year-old female who was admitted to [facility] with exacerbation of chronic obstructive pulmonary disease, cough, rhinorrhea, and positive influenza A was placed in respiratory isolation, had successful removal of left ear wax and improvement in vertigo and was noted to have bacteriuria which on microbiology reported to grow out ESBL E coli urinary tract infection. Blood culture showed no growth at 48 hours. The patient became agitated and signed AMA on the afternoon of 02/04/2018 with vital signs showing temperature 98.5, respirations 20, pulse 66 and blood pressure 142/84. Pulse ox is 97% on room air. At the time of discharge, white count 10,100, hemoglobin 12.6, hematocrit 39.4, platelets 416,000. Sodium 143, K 3.7, chloride 110, bicarb 25, BUN 26, creatinine 1.3. Estimated GFR 41 mL per minute. Random blood sugar 121, calcium 9.5. Cholesterol 121, triglycerides 114, LDL 53, HDL 38, T4 8.9 normal. B12 of 258, normal. Folic acid 9.4, normal. Chest x-ray was reviewed and showed no active infiltrate. Head CT showed no acute infarct or stroke. The patient insisted on AMA, was seen by Dr. Pramod Ware, who concurred with one dose of IV gentamicin treatment and the patient was advised to maintain respiratory isolation while completing Tamiflu and hopefully will be seen in my office next week as outlined. The patient was also advised for any change in signs and symptoms to present directly to [facility] ER for further evaluation. All of the above was discussed in the presence of her nurse at her bedside. Abbi Ling MD MTDMp
== END 2018-02-04 15:01 | disposition left against medical advice (07) | DRG 191 ==
LOC: ED 11:33 → ERH 13:06 → 3RNO 20:14
PROVIDERS: ADMIT Internal Medicine; ATTEND Internal Medicine
DX: J44.1 Chronic obstructive pulmonary disease with (acute) exacerbation (principal); N39.0 Urinary tract infection, site not specified; J45.901 Unspecified asthma with (acute) exacerbation; Z16.12 Extended spectrum beta lactamase (ESBL) resistance; B96.20 Unspecified Escherichia coli [E. coli] as the cause of diseases classified elsewhere; E11.22 Type 2 diabetes mellitus with diabetic chronic kidney disease; E11.69 Type 2 diabetes mellitus with other specified complication; E78.00 Pure hypercholesterolemia, unspecified; E78.5 Hyperlipidemia, unspecified; F17.210 Nicotine dependence, cigarettes, uncomplicated; F31.9 Bipolar disorder, unspecified; F41.1 Generalized anxiety disorder; G47.30 Sleep apnea, unspecified; H61.22 Impacted cerumen, left ear; I12.9 Hypertensive chronic kidney disease with stage 1 through stage 4 chronic kidney disease, or unspecified chronic kidney disease; I48.91 Unspecified atrial fibrillation; I49.3 Ventricular premature depolarization; J10.1 Influenza due to other identified influenza virus with other respiratory manifestations; K21.9 Gastro-esophageal reflux disease without esophagitis; K27.9 Peptic ulcer, site unspecified, unspecified as acute or chronic, without hemorrhage or perforation; M19.90 Unspecified osteoarthritis, unspecified site; N18.3 Chronic kidney disease, stage 3 (moderate); Z78.9 Other specified health status; Z79.84 Long term (current) use of oral hypoglycemic drugs; Z87.01 Personal history of pneumonia (recurrent); Z87.11 Personal history of peptic ulcer disease; Z87.440 Personal history of urinary (tract) infections; Z87.442 Personal history of urinary calculi; Z90.5 Acquired absence of kidney